=== PATIENT | male | born 1995 | race Caucasian/White ===

== ENCOUNTER 2024-06-25 03:02 | Inpatient (IN) | payer OTHER ==
--- NOTE | 2024-06-25 03:29 | ED ---
Arrhythmia/Palpitations HPI - General Chief Complaint: Arrhythmia/Palpitations Stated Complaint: Chest Pain Time Seen by Provider: 06/25/24 03:12 Source: patient, EMS Mode of arrival: EMS - History of Present Illness Initial Comments: Patient is a 29-year-old male with no significant past medical history presenting today for palpitations. Patient states he has had chest pain across his chest for a week. He has been taking Tylenol for the pain. Tonight he got updated water and started feeling palpitations. He collapsed and is unsure if he lost consciousness however he remembers his girlfriend calling 911. On EMS arrival patient appeared to be in SVT and so was cardioverted. On arrival to the emergency department patient states he is asymptomatic. He denies any shor tness of breath or chest pain currently. Denies nausea, vomiting, recent fevers chills or cough. Denies does endorse sore throat. States that on Friday he called in sick to work due to congestion and sore throat. He also was with his mother this last weekend who was recently admitted to the hospital for double pneumonia. No family history sudden cardiac . - Related Data Home Medications Medication Instructions Recorded Confirmed No Known Home Medications 06/25/24 06/25/24 Allergies Allergy/AdvReac Type Severity Reaction Status Date / Time No Known Allergies Allergy Verified 06/25/24 07:45 Review of Systems ROS Statement: Those systems with pertinent positive or pertinent negative responses have been documented in the HPI. Constitutional: Denies: fever, chills ENT: Reports: throat pain, congestion Respiratory: Denies: cough, dyspnea, hemoptysis Cardiovascular: Reports: palpitations. Denies: chest pain, edema Gastrointestinal: Denies: abdominal pain, nausea, vomiting, diarrhea Neurological: Denies: weakness, numbness Past Medical History History of Any Multi-Drug Resistant Organisms: None Reported Past Psychological History: ADD/ADHD, Anxiety Smoking Status: Vaper Past Alcohol Use History: None Reported Past Drug Use History: Marijuana General Exam - General Exam Comments Initial Comments: PE: CONSTITUTIONAL: No apparent distress, ill appearing, nontoxic SKIN: Cool, dry, pale, no jaundice, hives or petechiae EYES: Pupils are equally round, extraocular movements intact without nystagmus, clear conjunctiva, non-icteric sclera HENT: Normocephalic, atraumatic, moist mucus membranes, oropharynx clear without exudates NECK: , Full range of motion, normal appearance PULMONARY: Clear to auscultation without wheezes, rhonchi, or rales, normal excursion, no accessory muscle use and no stridor CARDIOVASCULAR: Tachycardia, regular rhythm, normal S1 and S2. No appreciated murmurs, rubs or gallops. Strong radial pulses with intact distal perfusion. 1+ RLE edema GASTROINTESTINAL: Soft, active bowel sounds throughout, non-tender, non- distended, no palpable masses, no rebound or guarding. No hepatosplenomegaly MUSCULOSKELETAL: Extremities have no gross deformity, redness, or swelling. NEUROLOGIC:_a/o x 3, GCS 15, normal mentation and speech. Moves all extremities x 4 without motor or sensory deficit PSYCHIATRIC:_normal mood and affect, thought process is clear and linear Course Vital Signs 06/25/24 06/25/24 06/25/24 03:04 04:05 05:06 Temperature Pulse Rate 101 H 112 H 103 H Respiratory 16 20 18 Rate Blood Pressure 114/84 119/82 110/88 O2 Sat by Pulse 96 95 95 Oximetry 06/25/24 06/25/24 06/25/24 06:45 07:40 07:42 Temperature 98.1 F Pulse Rate 110 H 102 H Respiratory 22 19 Rate Blood Pressure 117/98 120/74 O2 Sat by Pulse 95 95 Oximetry EKG Findings - EKG Comments: EKG Findings:: EKG #1, performed 3:08 AM. Rate 110 bpm DC interval 187 ms, QRS duration 106 ms, QT/QTc 348/413 ms, left axis deviation, T wave inversion leads, mild ST depression V4, 5, 6, no ST elevations, PVCs present. 2, performed at 4:22 AM. Sinus tachycardia, rate 105 bpm, DC interval 197 ms, QRS duration 99 ms, QT/QTc 363/424 ms, borderline left axis deviation, no new ST elevations or depressions, stable from earlier PVCs noted Medical Decision Making - Medical Decision Making Was pt. sent in by a medical professional or institution (, PA, PATTERN HAND, urgent care, hospital, or shelter...) When possible be specific @ -No Did you speak to anyone other than the patient for history (EMS, parent, family, police, friend...)? What history was obtained from this source @ -EMS report provided report to RN who provided report to myself Did you review nursing and triage notes (agree or disagree)? Why? @ -I reviewed and agree with nursing and triage notes-with exception of st atement that patient is in A-fib with RVR, patient appears to be in sinus tachycardia on arrival Were old charts reviewed (outside hosp., previous admission, EMS record, old EKG, old radiological studies, urgent care reports/EKG's, shelter records)? Report findings @ -No old charts were reviewed no prior charts available for review Differential Diagnosis (chest pain, altered mental status, abdominal pain women, abdominal pain men, vaginal bleeding, weakness, fever, dyspnea, syncope, headac he, dizziness, GI bleed, back pain, seizure, CVA, palpatations, mental health, musculoskeletal)? @ -Differential diagnose runs broad however top considerations include ACS, arrhythmia, pericarditis, myocarditis, PE is not all-inclusive list EKG interpreted by me (3pts min.). @ -As above X-rays interpreted by me (1pt min.). @Cardiomegaly, small bilateral pleural effusions, pulmonary edema CT interpreted by me (1pt min.). @ -Cardiomegaly, no PE or dissection U/S interpreted by me (1pt. min.). @ -None done What testing was considered but not performed or refused? (CT, X-rays, U/S, labs)? Why? @ -None What meds were considered but not given or refused? Why? @ -None Did you discuss the management of the patient with other professionals (professionals i.e. , PA, PATTERN HAND, lab, RT, psych nurse, sexual assault social worker, chauffeur motorbus, teacher, chief creative officer, wrapper caser)? Give summary @ -No Was smoking cessation discussed for >3mins.? @ -No Was critical care preformed (if so, how long)? @ -Yes, 45 minutes Were there social determinants of health that impacted care today? How? (Homelessness, low income, unemployed, alcoholism, drug addiction, transportation, low edu. Level, literacy, decrease access to med. care, retirement, rehab)? @ -No Was there de-escalation of care discussed even if they declined (Discuss DNR or withdrawal of care, Hospice)? @ -No What co-morbidities impacted this encounter? (DM, HTN, Smoking, COPD, CAD, Cancer, CVA, ARF, Chemo, Hep., AIDS, mental health diagnosis, sleep apnea, morbid obesity)? @ -None Was patient admitted / discharged? Hospital course, mention meds given and route, prescriptions, significant lab abnormalities, going to OR and other pertinent info. @ -Hospital course admitted Seen and assessed on arrival, he is a pleasant 29-year-old gentleman with no significant past medical history presenting today status post SVT, status post cardioversion. Now in sinus tachycardia. On assessment patient is pale and ill-appearing but nontoxic in no acute distress. He is awake alert and pleasant. Cardiac exam shows normal S1-S2, tachycardia, 2+ DP pulses bilaterally, lungs clear to auscultation bilaterally, 1+ lower extremity pitting edema. Patient is currently chest pain-free. Denies shortness of breath. Bedside ultrasound appears to show enlarged cardiac silhouette but no pericardial effusion. Plan for CT PE study, troponin, BNP, ASA administration,, CMP, CBC, CRP, 500 cc IV fluids, pt/ptt, DC mobile. Patient agreeable plan. Troponin significant 0.334, patient is not actively endorsing chest pain however given significant troponin elevation, chest pain for the last week heparin was initiated, reviewed CT scan right ventricle and right atrium appear enlarged unclear if there is PE present, currently pending radiologist read, requested CT be forwarded to stat read for expedited review. Updated patient to findings thus far and pending CT PE study. Repeat EKG was obtained and showed no new ST elevations or depressions, no changes from original. Updated him plan for heparin administration. Patient denies further needs at this time, agreeable th plan. Labs otherwise significant for creatinine 1.35, GFR 69, CRP 1.3, CBC white blood cell count 17.3, K 3.4, ordered replacement K; viral testing negative. Chest CT significant for no large or central PE, no aortic aneurysm or dissection, interlobular septal thickening and groundglass opacities concerning for fluid overload and pulmonary edema, fluid overload and pulmonary edema bronchial pavon secondary to fluid overload bronchitis not excluded, moderate right and left pleural effusions nonspecific prominent mediastinal and hilar lymph nodes shotty left axillary lymph nodes with nonspecific specific fat stranding. On my reassessment there was some lymphadenopathy in right axilla h owever no tenderness palpation or fluctuance. Updated patient to findings. Discussed with him plan for admission. Patient is agreeable with plan. Will initiate abx given lymphadenopathy and leukocytosis noted on labs, ordered blood culture (only 1 due to shortage of blood cultures). Discussed case with Dr. Humphrey, [facility], [place] [facility], kindly except for admission. Patient admitted in stable but guarded condition. Of note, after admission, patient remained in ED until bed placement. I was aler jocelyn by RN that patient was diaphoretic and having chest pain. On my assessment patient pale and diaphoretic. Repeat EKG obtained, remained stable from prior EKGs performed. Ordered morphine, SL nitroglycerin, paged cardiology. Discussed with Dr. Pacheco, who kindly will send cardiology to evaluate patient. Repeat troponin currently pending. On reassessment, patient's pain improving with sublingual nitroglycerin. Repeat troponin .992. I did request that RN contact admitting team regarding this. Cardiology, Dr. Winter at bedside to evaluate patient. Undiagnosed new problem with uncertain prognosis? @ Yes Drug Therapy requiring intensive monitoring for toxicity (Heparin, Nitro, Insulin, Cardizem)? @ Heparin Were any procedures done? @ -No Diagnosis/symptom? @ -NSTEMI, pleural effusions, concern for myocarditis Acute, or Chronic, or Acute on Chronic? @ -Acute Uncomplicated (without systemic symptoms) or Complicated (systemic symptoms)? @ Complicated Side effects of treatment? @ -No Exacerbation, Progression, or Severe Exacerbation? @ -No Poses a threat to life or bodily function? How? (Chest pain, [place], [place], pneumonia, PE, COPD, DKA, ARF, appy, cholecystitis, CVA, Diverticulitis, Homicidal, Suicidal, threat to staff... and all critical care pts) @ Yes - Lab Data Result diagrams: 06/25/24 03:15 06/25/24 03:15 Lab Results 06/25/24 06/25/24 06/25/24 Range/Units 03:15 03:15 03:15 WBC 17.3 H (3.8-10.6) k/uL RBC 4.48 (4.30-5.90) m/uL Hgb 14.0 (13.0-17.5) gm/dL Hct 43.2 (39.0-53.0) % MCV 96.4 (80.0-100.0) fL MCH 31.2 (25.0-35.0) pg MCHC 32.4 (31.0-37.0) g/dL RDW 13.1 (11.5-15.5) % Plt Count 228 (150-450) k/uL MPV 9.6 Neutrophils % 92 % Lymphocytes % 5 % Monocytes % 3 % Eosinophils % 0 % Basophils % 0 % Neutrophils # 16.0 H (1.3-7.7) k/uL Lymphocytes # 0.8 L (1.0-4.8) k/uL Monocytes # 0.5 (0-1.0) k/uL Eosinophils # 0.0 (0-0.7) k/uL Basophils # 0.0 (0-0.2) k/uL PT 13.0 H (10.0-12.5) sec INR 1.2 H (<1.2) APTT 22.1 (22.0-30.0) sec Sodium 138 (137-145) mmol/L Potassium 3.4 L (3.5-5.1) mmol/L Chloride 112 H (98-107) mmol/L Carbon Dioxide 19 L (22-30) mmol/L Anion Gap 7 mmol/L BUN 16 (9-20) mg/dL Creatinine 1.35 H (0.66-1.25) mg/dL Est GFR (CKD-EPI)AfAm 80 (>60 ml/min/1.73 sqM) Est GFR (CKD-EPI)NonAf 69 (>60 ml/min/1.73 sqM) Glucose 118 H (74-99) mg/dL Calcium 8.9 (8.4-10.2) mg/dL Magnesium 1.9 (1.6-2.3) mg/dL Total Bilirubin 1.9 H (0.2-1.3) mg/dL AST 62 H (17-59) U/L ALT 33 (4-49) U/L Alkaline Phosphatase 67 (38-126) U/L Troponin I (0.000-0.034) ng/mL C-Reactive Protein 1.3 H (<1.0) mg/dL Total Protein 5.8 L (6.3-8.2) g/dL Albumin 3.5 (3.5-5.0) g/dL Urine Opiates Screen (NotDetected) Ur Oxycodone Screen (NotDetected) Urine Methadone Screen (NotDetected) Ur Barbiturates Screen (NotDetected) U Tricyclic Antidepress (NotDetected) Ur Phencyclidine Scrn (NotDetected) Ur Amphetamines Screen (NotDetected) U Methamphetamines Scrn (NotDetected) U Benzodiazepines Scrn (NotDetected) Urine Cocaine Screen (NotDetected) U Marijuana (THC) Screen (NotDetected) Influenza Type A (PCR) (Not Detectd) Influenza Type B (PCR) (Not Detectd) RSV (PCR) (Not Detectd) SARS-CoV-2 (PCR) (Not Detectd) 06/25/24 06/25/24 06/25/24 Range/Units 03:15 03:40 04:25 WBC (3.8-10.6) k/uL RBC (4.30-5.90) m/uL Hgb (13.0-17.5) gm/dL Hct (39.0-53.0) % MCV (80.0-100.0) fL MCH (25.0-35.0) pg MCHC (31.0-37.0) g/dL RDW (11.5-15.5) % Plt Count (150-450) k/uL MPV Neutrophils % % Lymphocytes % % Monocytes % % Eosinophils % % Basophils % % Neutrophils # (1.3-7.7) k/uL Lymphocytes # (1.0-4.8) k/uL Monocytes # (0-1.0) k/uL Eosinophils # (0-0.7) k/uL Basophils # (0-0.2) k/uL PT (10.0-12.5) sec INR (<1.2) APTT (22.0-30.0) sec Sodium (137-145) mmol/L Potassium (3.5-5.1) mmol/L Chloride (98-107) mmol/L Carbon Dioxide (22-30) mmol/L Anion Gap mmol/L BUN (9-20) mg/dL Creatinine (0.66-1.25) mg/dL Est GFR (CKD-EPI)AfAm (>60 ml/min/1.73 sqM) Est GFR (CKD-EPI)NonAf (>60 ml/min/1.73 sqM) Glucose (74-99) mg/dL Calcium (8.4-10.2) mg/dL Magnesium (1.6-2.3) mg/dL Total Bilirubin (0.2-1.3) mg/dL AST (17-59) U/L ALT (4-49) U/L Alkaline Phosphatase (38-126) U/L Troponin I 0.182 H* (0.000-0.034) ng/mL C-Reactive Protein (<1.0) mg/dL Total Protein (6.3-8.2) g/dL Albumin (3.5-5.0) g/dL Urine Opiates Screen Not Detected (NotDetected) Ur Oxycodone Screen Not Detected (NotDetected) Urine Methadone Screen Not Detected (NotDetected) Ur Barbiturates Screen Not Detected (NotDetected) U Tricyclic Antidepress Not Detected (NotDetected) Ur Phencyclidine Scrn Not Detected (NotDetected) Ur Amphetamines Screen Not Detected (NotDetected) U Methamphetamines Scrn Not Detected (NotDetected) U Benzodiazepines Scrn Not Detected (NotDetected) Urine Cocaine Screen Not Detected (NotDetected) U Marijuana (THC) Screen Detected H (NotDetected) Influenza Type A (PCR) Not Detected (Not Detectd) Influenza Type B (PCR) Not Detected (Not Detectd) RSV (PCR) Not Detected (Not Detectd) SARS-CoV-2 (PCR) Not Detected (Not Detectd) Disposition Clinical Impression: Tachycardia, Pleural effusion, Cardiomegaly, NSTEMI (non-ST elevated myocardial infarction) Disposition: ADMITTED IP TO THIS HOSP Condition: Stable
[2024-06-25] MEDS: ASPIRIN 81 MG PO STA (03:36)
[2024-06-25] MEDS: SODIUM CHLORIDE 0.9% 500 ML 500 ML IV STA (03:37)
[2024-06-25 03:49] LABS: ALT 33 U/L (4-49); AST 62 U/L (17-59); African American GFR (CKD) 80 (>60 ml/min/1.73 sqM); Albumin 3.5 g/dL (3.5-5.0); Alkaline Phosphatase 67 U/L (38-126); Anion Gap 7 mmol/L; Blood Urea Nitrogen 16 mg/dL (9-20); C Reactive Protein 1.3 mg/dL (<1.0); Calcium 8.9 mg/dL (8.4-10.2); Carbon Dioxide 19 mmol/L (22-30); Chloride 112 mmol/L (98-107); Glucose 118 mg/dL (74-99); INR 1.2 (<1.2); Magnesium 1.9 mg/dL (1.6-2.3); Non-African American GFR(CKD) 69 (>60 ml/min/1.73 sqM); Partial Thromboplastin Time 22.1 sec (22.0-30.0); Potassium 3.4 mmol/L (3.5-5.1); Sodium 138 mmol/L (137-145); Total Bilirubin 1.9 mg/dL (0.2-1.3); Total Protein 5.8 g/dL (6.3-8.2)
[2024-06-25 04:22] LABS: Basophils % (A) 0 %; Eosinophils % (A) 0 %; HCT 43.2 % (39.0-53.0); Lymphocytes # (A) 0.8 k/uL (1.0-4.8); Lymphocytes % (A) 5 %; MCH 31.2 pg (25.0-35.0); MCHC 32.4 g/dL (31.0-37.0); MCV 96.4 fL (80.0-100.0); Mean Platelet Volume 9.6; Monocytes # (A) 0.5 k/uL (0-1.0); Monocytes % (A) 3 %; Neutrophils % (A) 92 %; Platelet Count 228 k/uL (150-450); RBC 4.48 m/uL (4.30-5.90); RDW 13.1 % (11.5-15.5); WBC 17.3 k/uL (3.8-10.6)
[2024-06-25] MEDS ORDERED: HEPARIN SODIUM 1,000 UN/ML (10ML VL) IV PRN ×2 (04:47→15:15)
[2024-06-25] MEDS: HEPARIN SOD,PORK IN 0.45% NACL 25,000 UNIT in 0.45% NACL 1 250ML.BAG IV SCH ×4 (04:55→15:36)
[2024-06-25] MEDS: HEPARIN SODIUM 1,000 UN/ML (10ML VL) IVP STA (04:56)
[2024-06-25] MEDS: HEPARIN SODIUM 1,000 UN/ML (10ML VL) IV ONE ×2 (04:59→16:32)
--- NOTE | 2024-06-25 05:17 | CT ---
EXAM: CT Angiography Chest Without and With Intravenous Contrast CLINICAL HISTORY: ITS.REASON CT Reason: tachycardia, CP for a week TECHNIQUE: Axial computed tomographic angiography images of the chest without and with intravenous contrast. CTDI is 152.9 mGy and DLP is 1583.2 mGy-cm. This CT exam was performed using one or more of the following dose reduction techniques: automated exposure control, adjustment of the mA and/or kV according to patient size, and/or use of iterative reconstruction technique. MIP reconstructed images were created and reviewed. COMPARISON: None FINDINGS: Pulmonary arteries: No central or large pulmonary embolus identified. Evaluation of the pulmonary arterial branches is limited by suboptimal contrast bolus timing. Aorta: No acute findings. No aortic aneurysm or dissection. Lungs: Interlobular septal thickening and groundglass opacities, concerning for fluid overload and pulmonary edema. Prominence of the bronchial pavon is probably secondary to fluid overload. Bronchitis is not excluded. Dependent atelectasis bilaterally. Pleural space: Moderate right and small left pleural effusions. No pneumothorax. Heart: Mild cardiomegaly. No significant pericardial effusion. No evidence of RV dysfunction. Mediastinum: Nonspecific prominent mediastinal and hilar lymph nodes. Shotty left axillary lymph nodes are nonspecific fat stranding. Bones/joints: No acute fracture. No dislocation. Soft tissues: Unremarkable. Lymph nodes: See above. IMPRESSION: 1. No central or large pulmonary embolus identified. Evaluation of the pulmonary arterial branches is limited by suboptimal contrast bolus timing. 2. No aortic aneurysm or dissection. 3. Interlobular septal thickening and groundglass opacities, concerning for fluid overload and pulmonary edema. 4. Prominence of the bronchial pavon is probably secondary to fluid overload. Bronchitis is not excluded. 5. Moderate right and small left pleural effusions. 6. Nonspecific prominent mediastinal and hilar lymph nodes. Shotty left axillary lymph nodes are nonspecific fat stranding.
--- NOTE | 2024-06-25 05:18 | XR ---
EXAM: XR Chest, 2 Views CLINICAL HISTORY: ITS.REASON XR Reason: dysrhythmia TECHNIQUE: Frontal and lateral views of the chest. COMPARISON: Same day CT chest FINDINGS: Hardware: None. Lungs/pleura: Prominent lung markings and hazy opacities. Small pleural effusions. Heart/mediastinum: Enlargement of the cardiac silhouette. Soft tissues: Unremarkable. Bones: No acute fracture. Upper abdomen: Normal. IMPRESSION: Prominent lung markings and hazy opacities, suggesting pulmonary vasculature congestion and edema. Small pleural effusions.
[2024-06-25 05:19] LABS: Amphetamine Screen,Urine Not Detected (NotDetected); Barbiturate Screen,Urine Not Detected (NotDetected); Benzodiazepines Screen,Urine Not Detected (NotDetected); Cocaine Screen,Urine Not Detected (NotDetected); Methadone Screen, Urine Not Detected (NotDetected); Opiate Screen,Urine Not Detected (NotDetected); Oxycodone Screen, Urine Not Detected (NotDetected); Phencyclidine Screen,Urine Not Detected (NotDetected); Tricyclic Antidepressant,Urine Not Detected (NotDetected); Urn Cannabinoid Scrn Detected (NotDetected)
[2024-06-25] MEDS ORDERED: NALOXONE 0.4 MG/ML 1 ML VIAL IV PRN (05:32)
[2024-06-25] MEDS ORDERED: traMADol 50 MG TAB PO PRN (05:32)
[2024-06-25] MEDS ORDERED: CALCIUM CARBONATE 500 MG CHEWABLE PO PRN (05:32)
[2024-06-25] MEDS ORDERED: ONDANSETRON 4 MG/2 ML VIAL IVP PRN (05:32)
[2024-06-25] MEDS ORDERED: MAG HYDROX/AL HYDROX/SIMETH 30 ML CUP PO PRN (05:32)
[2024-06-25] MEDS ORDERED: ACETAMINOPHEN TAB 325 MG TAB PO PRN (05:32)
[2024-06-25] MEDS: SODIUM CHLORIDE 0.9% 1,000 ML IV SCH ×4 (05:56→16:24)
[2024-06-25] MEDS: cefTRIAXone IN SWFI 1,000 MG/10 ML SYRINGE IVP STA (05:57)
[2024-06-25] MEDS: AZITHROMYCIN 500 MG in SODIUM CHLORIDE 0.9% 250 ML IVPB STA (05:57)
[2024-06-25] MEDS: POTASSIUM BICARBONATE/CIT AC 20 MEQ TABLET.EFF PO SCH (06:07)
[2024-06-25] MEDS: NITROGLYCERIN SL TABS 0.4 MG TAB SUBLINGUAL PRN (07:02)
[2024-06-25] MEDS: MORPHINE SULFATE 4 MG/ML SYRINGE IV PRN (07:03)
[2024-06-25] MEDS: NITROGLYCERIN SL TABS 0.4 MG TAB SUBLINGUAL STA (08:06)
[2024-06-25] MEDS ORDERED: ALPRAZolam 0.5 MG TAB PO PRN (08:32)
[2024-06-25] MEDS ORDERED: ALPRAZolam 0.25 MG TAB PO PRN (08:32)
[2024-06-25] MEDS ORDERED: NITROGLYCERIN SL TABS 0.4 MG TAB SUBLINGUAL PRN (08:32)
[2024-06-25] MEDS: FAMOTIDINE 20 MG TAB PO SCH (08:44)
[2024-06-25] MEDS: ASPIRIN 325 MG TAB PO STA (08:44)
[2024-06-25] MEDS: METOPROLOL TARTRATE 25 MG TAB PO SCH (08:45)
[2024-06-25] MEDS: ATORVASTATIN 80 MG TAB PO STA (08:51)
[2024-06-25] MEDS ORDERED: ASPIRIN 81 MG PO SCH (09:00)
[2024-06-25] MEDS: SODIUM CHLORIDE 0.9% 1,000 ML in EMPTY BAG 1 BAG IV SCH (09:10)
--- NOTE | 2024-06-25 09:33 | P.CRDCN ---
History of Present Illness History of present illness: HISTORY OF PRESENT ILLNESS: This is a 29-year-old male with a past medical history significant for ADD, anxiety, nicotine dependence, and occasional marijuana use. Patient does not follow with a retail product demo specialist. We have been asked to see the patient in consultation for SVT, cardiomegaly. Patient examined at the bedside in the emergency room. Patient states that he has had an upper respiratory infection/cold all week. He states that his mom was in town visiting and she was also sick at that time. His mom eventually went to the hospital and was diagnosed with pneumonia. He states that he woke up from sleep with a feeling of his heart racing. He also reports having some pressure on his chest. According to ER documentation the patient was found to be in SVT and was apparently cardioverted by EMS. There is no documentation that patient was given adenosine. There are no telemetry tracings of SVT available from EMS at the time of examination. The patient states about 30 minutes prior to our evaluation he had another episode of chest pain where he felt pain in the middle of his chest along with feeling diaphoretic and feverish. He states that he got to nitro which did help his chest pain but it is still not completely gone. DIAGNOSTICS: - EKG reveals sinus mechanism with T wave inversions in lead I, V4V6 along with mild ST depression - Chest xray prominent lung markings and hazy opacities, suggesting pulmonary vascular congestion and edema. Small pleural effusions. -Chest CTA: No central or large pulmonary embolism identified. No aortic aneurysm or dissection. Interlobular septal thickening and groundglass opacities, concerning for fluid overload and pulmonary edema. Prominence of the bronchial pavon is probably secondary to fluid overload. Bronchitis is not excluded. Moderate right and small left pleural effusion. Nonspecific prominent mediastinal and hilar lymph nodes. Shotty left axillary lymph nodes are nonspecific fat stranding - Laboratory data: - Current home cardiac medications include none REVIEW OF SYSTEMS: At the time of my exam: CONSTITUTIONAL: Denies fever or chills. HEENT: Denies blurred vision, vision changes, or eye pain. Denies hemoptysis CARDIOVASCULAR: Reports chest pain. Denies orthopnea. Denies PND. Denies palpita tions RESPIRATORY: Denies shortness of breath. GASTROINTESTINAL: Denies abdominal pain. Denies nausea or vomiting. HEMATOLOGIC: Denies bleeding disorders. GENITOURINARY: Denies any blood in urine. SKIN: Denies pruitis. Denies rash. PHYSICAL EXAM: VITAL SIGNS: Reviewed. GENERAL: Well-developed in no acute distress. HEENT: Head is normocephalic. Pupils are equal, round. Sclerae anicteric. Mucous membranes of the mouth are moist. Neck supple. No JVD or thyromegaly LUNGS: Respirations even and unlabored. Lungs essentially clear to auscultation bilaterally. HEART: Regular rate and rhythm. S1 and S2 heard. ABDOMEN: Soft. Nondistended. Nontender. EXTREMITIES: Normal range of motion. No clubbing or cyanosis. Peripheral pulses intact. No lower extremity edema NEUROLOGIC: Awake and alert. Oriented x 3. ASSESSMENT: Recent upper respiratory infection Elevated troponins, Non-STEMI likely myocarditis, however cannot rule out underlying CAD or coronary dissection Reported SVT requiring cardioversion, no telemetry tracings from EMS available Acute kidney injury Leukocytosis Bilateral pleural effusions, per CTA History of ADD History of anxiety Nicotine dependence Occasional marijuana use Morbid obesity: BMI 40.0 PLAN: Obtain 2D echo to assess cardiac structure and function Continue IV heparin Add aspirin, atorvastatin, and metoprolol Continue telemetry monitoring Patient to undergo cardiac catheterization today with Dr. Caputo Smoking cessation recommended. Patient to be referred to [place] quit line upon discharge Abstinence from marijuana encouraged Further recommendations pending patient course Nurse practitioner note has been reviewed by physician. Signing provider agrees with the documented findings, assessment, and plan of care documented by ICE HOUSE SUPERVISOR as a scribe. Past Medical History History of Any Multi-Drug Resistant Organisms: None Reported Past Psychological History: ADD/ADHD, Anxiety Smoking Status: Vaper Past Alcohol Use History: None Reported Past Drug Use History: Marijuana Medications and Allergies Home Medications Medication Instructions Recorded Confirmed Type No Known Home Medications 06/25/24 06/25/24 History Allergies Allergy/AdvReac Type Severity Reaction Status Date / Time No Known Allergies Allergy Verified 06/25/24 07:45 Physical Exam Vitals: Vital Signs Pulse Resp BP Pulse Ox 06/25/24 05:06 103 H 18 110/88 95 06/25/24 04:05 112 H 20 119/82 95 06/25/24 03:04 101 H 16 114/84 96 Intake and Output 06/24/24 06/24/24 06/25/24 14:59 22:59 06:59 Other: Weight 145.15 kg Results 06/25/24 03:15 06/25/24 03:15 Cardiac Enzymes 06/25/24 06/25/24 Range/Units 03:15 03:15 AST 62 H (17-59) U/L Troponin I 0.182 H* (0.000-0.034) ng/mL Coagulation 06/25/24 Range/Units 03:15 PT 13.0 H (10.0-12.5) sec APTT 22.1 (22.0-30.0) sec CBC 06/25/24 Range/Units 03:15 WBC 17.3 H (3.8-10.6) k/uL RBC 4.48 (4.30-5.90) m/uL Hgb 14.0 (13.0-17.5) gm/dL Hct 43.2 (39.0-53.0) % Plt Count 228 (150-450) k/uL Comprehensive Metabolic Panel 06/25/24 Range/Units 03:15 Sodium 138 (137-145) mmol/L Potassium 3.4 L (3.5-5.1) mmol/L Chloride 112 H (98-107) mmol/L Carbon Dioxide 19 L (22-30) mmol/L BUN 16 (9-20) mg/dL Creatinine 1.35 H (0.66-1.25) mg/dL Glucose 118 H (74-99) mg/dL Calcium 8.9 (8.4-10.2) mg/dL AST 62 H (17-59) U/L ALT 33 (4-49) U/L Alkaline Phosphatase 67 (38-126) U/L Total Protein 5.8 L (6.3-8.2) g/dL Albumin 3.5 (3.5-5.0) g/dL Current Medications Generic Name Dose Route Start Last Admin Trade Name Freq PRN Reason Stop Dose Admin Acetaminophen 650 mg 06/25/24 05:32 Acetaminophen Tab 325 Mg Tab PO Q6HR PRN Mild Pain or Fever > 100.5 Al Hydroxide/Mg Hydroxide 15 ml 06/25/24 05:32 Mag Hydrox/Al Hydrox/Simeth 30 Ml Cup PO Q6HR PRN Indigestion Calcium Carbonate/Glycine 1,000 mg 06/25/24 05:32 Calcium Carbonate 500 Mg Chewable PO Q4HR PRN Dyspepsia Famotidine 20 mg 10/04/24 09:00 Famotidine 20 Mg Tab PO BID TRU Heparin Sodium (Porcine) 0 unit 06/25/24 04:47 Heparin Sodium 1,000 Un/Ml (10ml Vl) IV PER PROTOCOL PRN Low PTT Protocol Heparin Sodium/Sodium Chloride 250 mls @ 10 mls/hr 06/25/24 04:45 06/25/24 05:01 25,000 unit/ Sodium Chloride IV 6.8894 units/kg/hr .Q24H TRU 10 mls/hr Administration Protocol 6.8894 UNITS/KG/HR Heparin Sodium/Sodium Chloride 250 mls @ 10 mls/hr 06/25/24 05:00 06/25/24 05:03 25,000 unit/ Sodium Chloride IV Not Given .Q24H TRU Protocol 6.8894 UNITS/KG/HR Azithromycin 500 mg/ Sodium 250 mls @ 250 mls/hr 06/25/24 05:30 06/25/24 05:57 Chloride IVPB 06/25/24 06:29 250 mls/hr ONCE STA Administration Protocol Sodium Chloride 1,000 mls @ 75 mls/hr 06/25/24 05:45 06/25/24 05:56 Saline 0.9% IV 75 mls/hr .[id number] TRU Administration Morphine Sulfate 4 mg 06/25/24 05:32 Morphine Sulfate 4 Mg/Ml Syringe IV Q4HR PRN Severe Pain (Scale 7 to 10) Naloxone HCl 0.2 mg 06/25/24 05:32 Naloxone 0.4 Mg/Ml 1 Ml Vial IV Q2M PRN Opioid Reversal Ondansetron HCl 4 mg 06/25/24 05:32 Ondansetron 4 Mg/2 Ml Vial IVP Q8HR PRN Nausea And Vomiting Potassium Bicarbonate 20 meq 06/25/24 09:00 06/25/24 06:07 Potassium Bicarbonate/Cit Ac 20 Meq Tablet.Eff PO 20 meq DAILY TRU Administration Tramadol HCl 50 mg 06/25/24 05:32 Tramadol 50 Mg Tab PO Q6H PRN Moderate Pain (Scale 4 to 6) Intake and Output 06/24/24 06/24/24 06/25/24 14:59 22:59 06:59 Other: Weight 145.15 kg Patient Weight 06/25/24 06:59 Weight 145.15 kg 06/25/24 03:15 06/25/24 03:15
[2024-06-25] MEDS: MIDAZOLAM 2 MG/2 ML VIAL IVP ONE (10:32)
[2024-06-25] MEDS: fentaNYL (PF) 50 MCG/ML 2 ML AMP IVP ONE (10:32)
[2024-06-25] MEDS: LIDOCAINE 1% INJ 10MG/ML (20 ML MDV) SQ ONE (10:36)
[2024-06-25] MEDS: IV FLUID CONTINUATION 1,000 ML IV ONE (10:41)
[2024-06-25] MEDS: IOPAMIDOL-370 100ML BTL INJ ONE ×2 (11:10)
[2024-06-25] MEDS: HEPARIN SODIUM,PORCINE (1 ML) 2,500 UNIT in SODIUM CHLORIDE 0.9% 250 ML IRRIGATION PRN (11:11)
[2024-06-25] MEDS: HEPARIN SODIUM,PORCINE 10,000 UNIT in SODIUM CHLORIDE 0.9% 1,000 ML IRRIGATION PRN (11:11)
[2024-06-25] MEDS ORDERED: RX INFO: IV CONTRAST WAS GIVEN 1 EACH MISC MISCELLANE PRN (12:18)
[2024-06-25] MEDS ORDERED: ALBUTEROL NEBULIZED (CONC) 20 MG, SODIUM CHLORIDE 0.9% NEBULIZ 3 ML INHALATION PRN (12:19)
[2024-06-25] MEDS: FUROSEMIDE 10 MG/ML 4 ML VIAL IV STA (12:26)
[2024-06-25] MEDS: ALBUTEROL NEBULIZED 2.5 MG/3 ML INHALATION PRN (12:32)
[2024-06-25 13:10] LABS: Glucose,Whole Blood 128 mg/dL (70-110)
[2024-06-25] MEDS: LOSARTAN 25 MG TAB PO SCH (13:30)
[2024-06-25 13:31] LABS: Glucose,Whole Blood 132 mg/dL (70-110)
[2024-06-25 14:30] LABS: Basophils % (A) 0 %; Eosinophils % (A) 0 %; HCT 46.8 % (39.0-53.0); HGB 14.8 gm/dL (13.0-17.5); Lymphocytes # (A) 0.7 k/uL (1.0-4.8); Lymphocytes % (A) 6 %; MCH 30.7 pg (25.0-35.0); MCHC 31.6 g/dL (31.0-37.0); MCV 97.4 fL (80.0-100.0); Mean Platelet Volume 9.2; Monocytes # (A) 0.4 k/uL (0-1.0); Monocytes % (A) 4 %; Neutrophils # (A) 10.8 k/uL (1.3-7.7); Neutrophils % (A) 89 %; Platelet Count 270 k/uL (150-450); RDW 13.3 % (11.5-15.5); WBC 12.1 k/uL (3.8-10.6)
--- NOTE | 2024-06-25 14:50 | US ---
EXAMINATION TYPE: US venous doppler duplex LE RT DATE OF EXAM: 06/25/2024 2:41 PM COMPARISON: NONE CLINICAL INDICATION: Male, 29 years old with history of RLE swelling; RLE swelling. No hx of DVT, not on blood thinners. SIDE PERFORMED: Right TECHNIQUE: The lower extremity deep venous system is examined utilizing real time linear array sonog aj with graded compression, color doppler sonography, and spectral doppler. VESSELS IMAGED: Common Femoral Vein Deep Femoral Vein Greater Saphenous Vein * Femoral Vein Popliteal Vein Small Saphenous Vein * Proximal Calf Veins (* superficial vessels) Right Leg: Groin limited due to heart cath this morning and newton taped to right groin. Echoes seen in the mid popliteal vein with limited flow and limited compression IMPRESSION: Findings most consistent with nonocclusive deep venous thrombosis involving the mid righ t popliteal vein. A Red level critical message alert has been initiated for Frank Humphrey MD via the [employer] System on 06/25/2024 2:48 PM. This message alert has been sent to Frank Humphrey MD via t preferences provided by the clinician for the receipt of Radiology Critical Findings. Message ID [id number]. [facility], , 06/25/2024 2:48 PM
[2024-06-25 14:53] LABS: ALT 34 U/L (4-49); AST 43 U/L (17-59); African American GFR (CKD) >90 (>60 ml/min/1.73 sqM); Albumin 3.9 g/dL (3.5-5.0); Alkaline Phosphatase 63 U/L (38-126); Anion Gap 11 mmol/L; Blood Urea Nitrogen 15 mg/dL (9-20); Carbon Dioxide 21 mmol/L (22-30); Chloride 106 mmol/L (98-107); Creatine Kinase 142 U/L (55-170); Glucose 118 mg/dL (74-99); Magnesium 1.8 mg/dL (1.6-2.3); Non-African American GFR(CKD) 83 (>60 ml/min/1.73 sqM); Sodium 138 mmol/L (137-145); Total Bilirubin 1.6 mg/dL (0.2-1.3); Total Protein 6.4 g/dL (6.3-8.2)
[2024-06-25 15:03] LABS: Glucose,Whole Blood 132 mg/dL (70-110)
--- NOTE | 2024-06-25 16:11 | P.CNPUL ---
History of Present Illness Consult date: 06/25/24 Requesting physician: Frank Humphrey Reason for consult: dyspnea, hypoxemia, DVT, abnormal CXR/CT Chief complaint: Chest pain, heart racing, shortness of breath History of present illness: This is a 29-year-old male patient with a known history of ADHD, anxiety, vaping, marijuana use who moved here recently from [place] about 6 months ago. No current primary care provider. No home medications. He states he had been having some chest discomfort across his chest for about a week. He was using Tylenol for the pain. He woke up after midnight this morning with his heart racing and palpitations. He had gotten up to get a drink of water and collapsed. Unclear if he lost consciousness. His girlfriend called 911 and he was brought here by EMS. He was found to be in SVT and was cardioverted by tunnel worker. He was fairly asymptomatic when he arrived at the emergency room. He did state he had called in sick earlier this week due to sore throat cough and congestion. His mom had recently been admitted for bilateral pneumonia and she had developed a DVT. CT angiogram performed this morning ruled out central or large pulmonary embolus however suboptimal contrast bolus timing could not exclu de PE in the pulmonary arterial branches. No evidence of aortic aneurysm or dissection. There was interlobular septal thickening and groundglass opacities concerning for fluid overload and pulmonary edema. There is moderate right and small left pleural effusions. EKG revealed sinus tachycardia with some ST and T wave abnormalities laterally. The patient was taken to the cardiac lab and was found to have normal coronary arteries. Shortly after being admitted to the selective care unit the patient developed acute hypoxemia, diaphoresis tachycardia requiring BiPAP placement 12/5 and 100% FiO2. He was transferred to the intensive care unit for closer monitoring. He is seen there today in consultation. He is currently awake and alert. He remains on BiPAP. He denies any further chest discomfort. Dopplers of the lower extremity were positive for a DVT on the right and he was initiated back on a heparin drip. Echocardiogram is pending. Viral screen was negative. He received Lasix 40 mg IVP x 1 with 2 L of urine output. White count 12.1. Hemoglobin 14.8. Platelets 270. Sodium 138. Potassium 4.0. Bicarb 21. BUN 15. Creatinine 1.17. Troponin 0.182, 0.941. Urine drug screen positive for marijuana. Review of Systems REVIEW OF SYSTEMS: CONSTITUTIONAL: Denies any recent significant weight loss or weight gain. EYES: Denies change in vision. EARS, NOSE, MOUTH, THROAT: Denies headaches, denies sore throat. CARDIOVASCULAR: Positive for palpitations and chest pain, near syncopal episode. RESPIRATORY: Positive for shortness of breath, no cough, congestion or hemoptysis. GASTROINTESTINAL: Denies change in appetite, denies abdominal pain GENITOURINARY: Denies hematuria, denies infections. MUSKULOSKELETAL: Denies pain, denies swelling. INTEGUMENTARY: Denies rash, denies eczema. NEUROLOGICAL: Denies recent memory loss, no recent seizure activity. PSYCHIATRIC: Denies anxiety, denies depression. HEMATOLOGIC/LYMPHATIC: Denies anemia, denies enlarged lymph nodes. Past Medical History Additional Past Medical History / Comment(s): ADD, anxiety,htn, Goes though 1 vape every 2 weeks. Concussion x5 during high school football History of Any Multi-Drug Resistant Organisms: None Reported Past Surgical History: No Surgical Hx Reported Past Anesthesia/Blood Transfusion Reactions: No Reported Reaction Past Psychological History: ADD/ADHD, Anxiety Smoking Status: Vaper Past Alcohol Use History: Rare Past Drug Use History: Marijuana Additional Drug Use History / Comment(s): Currently daily vaper 10-15 puffs daily, uses 1 vape every two weeks. - Past Family History Mother Family Medical History: Congestive Heart Failure (CHF), COPD, Diabetes Mellitus, Deep Vein Thrombosis (DVT), Mitral Valve Prolapse (MVP), Pneumonia Additional Family Medical History / Comment(s): Recent penumonia with a gram - bacilli Father Additional Family Medical History / Comment(s): gout, elevated, psa smoker Medications and Allergies Home Medications Medication Instructions Recorded Confirmed Type No Known Home Medications 06/25/24 06/25/24 History Allergies Allergy/AdvReac Type Severity Reaction Status Date / Time No Known Allergies Allergy Verified 06/25/24 07:45 Physical Exam Vitals: Vital Signs Temp Pulse Pulse Resp BP BP Pulse Ox 06/25/24 15:20 06/25/24 14:15 93 16 109/83 100 06/25/24 14:00 94 16 120/84 100 06/25/24 13:45 97 16 113/97 100 06/25/24 13:29 98.2 F 103 H 19 98/64 100 06/25/24 13:09 96 23 113/79 95 06/25/24 12:58 117 H 21 124/74 78 L 06/25/24 12:42 110 H 06/25/24 12:37 95 06/25/24 12:33 107 H 106 H 20 136/79 93 L 06/25/24 12:17 106 H 20 126/58 93 L 06/25/24 12:00 104 H 20 124/83 96 06/25/24 11:47 100 20 144/81 95 06/25/24 11:32 100 20 109/75 93 L 06/25/24 10:44 06/25/24 10:43 06/25/24 10:02 98.1 F 106 H 22 118/95 95 06/25/24 09:03 106 H 22 131/97 95 06/25/24 08:46 102 H 16 123/82 96 06/25/24 07:42 102 H 19 120/74 95 06/25/24 07:40 98.1 F 06/25/24 06:45 110 H 22 117/98 95 06/25/24 05:06 103 H 18 110/88 95 06/25/24 04:05 112 H 20 119/82 95 06/25/24 03:04 101 H 16 114/84 96 FiO2 06/25/24 15:20 100 06/25/24 14:15 100 06/25/24 14:00 100 06/25/24 13:45 100 06/25/24 13:29 100 06/25/24 13:09 100 06/25/24 12:58 06/25/24 12:42 06/25/24 12:37 06/25/24 12:33 06/25/24 12:17 06/25/24 12:00 06/25/24 11:47 06/25/24 11:32 06/25/24 10:44 80 06/25/24 10:43 80 06/25/24 10:02 06/25/24 09:03 06/25/24 08:46 06/25/24 07:42 06/25/24 07:40 06/25/24 06:45 06/25/24 05:06 06/25/24 04:05 06/25/24 03:04 Intake and Output 06/25/24 06/25/24 06/25/24 06:59 14:59 22:59 Intake Total 250 Output Total 1625 Balance -1375 Intake: IV 250 Output: Urine 1625 Other: Weight 145.15 kg 144 kg GENERAL EXAM: Alert, obese, pleasant 29-year-old male, on BiPAP 12/5 and 60% FiO2, fairly comfortable in no apparent distress. HEAD: Normocephalic. EYES: Normal reaction of pupils, equal size. NOSE: Clear with pink turbinates. THROAT: No erythema or exudates. NECK: No masses, no JVD. CHEST: No chest wall deformity. LUNGS: Equal air entry with no crackles, wheeze, rhonchi or dullness. CVS: S1 and S2 normal with no audible murmur, regular rhythm. ABDOMEN: No hepatosplenomegaly, normal bowel sounds, no guarding or rigidity. SPINE: No scoliosis or deformity SKIN: No rashes CENTRAL NERVOUS SYSTEM: No focal deficits, tone is normal in all 4 extremities. EXTREMITIES: There is no peripheral edema. No clubbing, no cyanosis. Peripheral pulses are intact. Results - Laboratory Findings CBC and BMP: 06/25/24 14:10 06/25/24 14:10 PT/INR, D-dimer PT 13.0 sec (10.0-12.5) H 06/25/24 03:15 INR 1.2 (<1.2) H 06/25/24 03:15 Abnormal lab findings: Abnormal Labs 06/25/24 06/25/24 06/25/24 03:15 03:15 03:15 WBC 17.3 H Neutrophils # 16.0 H Lymphocytes # 0.8 L PT 13.0 H INR 1.2 H Potassium 3.4 L Chloride 112 H Carbon Dioxide 19 L Creatinine 1.35 H Glucose 118 H POC Glucose (mg/dL) Total Bilirubin 1.9 H AST 62 H Troponin I C-Reactive Protein 1.3 H Total Protein 5.8 L U Marijuana (THC) Screen 06/25/24 06/25/24 06/25/24 03:15 04:25 06:35 WBC Neutrophils # Lymphocytes # PT INR Potassium Chloride Carbon Dioxide Creatinine Glucose POC Glucose (mg/dL) Total Bilirubin AST Troponin I 0.182 H* 0.941 H* C-Reactive Protein Total Protein U Marijuana (THC) Screen Detected H 06/25/24 06/25/24 06/25/24 12:59 13:30 13:30 WBC Neutrophils # Lymphocytes # PT INR Potassium Chloride Carbon Dioxide Creatinine Glucose POC Glucose (mg/dL) 128 H 132 H 132 H Total Bilirubin AST Troponin I C-Reactive Protein Total Protein U Marijuana (THC) Screen 06/25/24 06/25/24 14:10 14:10 WBC 12.1 H Neutrophils # 10.8 H Lymphocytes # 0.7 L PT INR Potassium Chloride Carbon Dioxide 21 L Creatinine Glucose 118 H POC Glucose (mg/dL) Total Bilirubin 1.6 H AST Troponin I C-Reactive Protein Total Protein U Marijuana (THC) Screen - Diagnostic Findings Chest x-ray: image reviewed CT scan - chest: image reviewed U/S of Legs: image reviewed Assessment and Plan Assessment: Palpitations in a patient found to be in SVT requiring cardioversion prior to arrival to the emergency department Acute hypoxemic respiratory failure secondary to bilateral pleural effusions, suspected pulmonary emboli Acute right lower extremity DVT, initiated on a heparin drip Transient ST segment elevation, cardiac catheterization revealed normal coronary arteries History of vaping, marijuana use History of ADHD Family history of DVT in his mother History of anxiety Plan: The patient was seen and evaluated Imaging, labs and medications reviewed Received IV diuretics with good urine output Currently on BiPAP, transition to nasal cannula as tolerated Continue with a heparin drip Echocardiogram pending Would benefit from genetic testing for blood dyscrasias Continue to monitor closely here in the intensive care unit We will continue to follow and make further recommendations based on his clinical status I have personally seen and examined the patient, performed the documentation and the assessment and plan as written. Number of minutes spent on the visit: 20.
--- NOTE | 2024-06-25 16:31 | P.HPIM ---
History of Present Illness H&P Date: 06/25/24 Chief Complaint: Palpitations Patient is a 29-year-old male with a past medical history of marijuana use, vaping, hypertension, ADHD who is currently on no medication presents to the ED with complaints of palpitations. Patient did report that he was having chest pain across his chest for the past week. He was taking Tylenol for the pain. He states that last night he got up to get some water and started feeling palpitations and he then collapsed and is not sure if he lost consciousness. His fiance called 911. When EMS arrived patient was found to be in SVT. He wa s cardioverted. In the ED patient was found to have ST depressions in his lateral lead. His troponin increased from 0.182 to 0.941. Patient was emergently taken for heart catheterization. Heart cath at the time of this report is pending however I was told by ICU nurse that it was negative. During the heart catheterization patient became cyanotic and short of breath. Patient was given IV Lasix 40 mg. Once patient was stabilized he was transferred to [facility]. On 3S Patient became short of breath again. He was placed on BiPAP and transferred to the ICU. I saw patient in the ICU. Per ICU nurse patient has now put out over 2 L of urine. Patient is on BiPAP at 60%. He states that he is feeling much better. CTA was done that showed no large pulmonary embolus however there was interlobar septal thickening and groundglass opacities concerning for fluid overload and pulmonary edema. There is also moderate right and small left pleural effusions. Patient also had lower extremity Dopplers done that showed nonocclusive DVT involving the mid right popliteal vein. Patient was started on heparin drip. ROS: 10 ROS reviewed and are negative except as noted in HPI Physical exam General: [Alert and oriented, well nourished, no acute distress]. Eye: [PERRL, EOMI, normal conjunctiva]. HENT: [Normocephalic, clear tympanic membranes, normal hearing, moist oral mucosa, no scleral icterus, no sinus tenderness]. Neck: [Supple, non-tender, no carotid bruits, no JVD, no lymphadenopathy]. Lungs: [Crackles in bilateral lower lungs]. Heart: [Normal rate, regular rhythm, no murmur, gallop or edema]. Abdomen: [Soft, non-tender, non-distended, normal bowel sounds, no masses]. Musculoskeletal: [Normal range of motion and strength, no tenderness or swelling]. Skin: [Skin is warm, dry and pink, no rashes or lesions]. Neurologic: [Awake, alert, and oriented X3, CN II-XII intact]. Psychiatric: [Cooperative, appropriate mood and affect]. Assessment and plan Acute hypoxic respiratory failure Volume overload suspect due to heart failure Suspect acute heart failure due to SVT SVT suspect due to excessive caffeine intake Status post cardioversion by EMS for SVT Rule out myocarditis since patient had recent viral infection History of vaping Wean off BiPAP as tolerated DuoNeb as needed Patient was given one-time dose of IV Lasix 40 mg with significant urine output of over 2 L. Patient reporting that his shortness of breath is improving. Patient's procalcitonin 0.09 and patient is afebrile so we will hold off on antibiotics. I ordered TSH which was 1.960. Echocardiogram ordered and pending Patient reports that he drinks 1 L of Mountain Dew every single day. Patient was counseled on cutting back on his Mountain Dew Acute right lower extremity DVT Continue with heparin drip I discussed with pulmonology who suspects that patient may also have a small pulmonary embolism that was not seen on CTA scan because patient found to have acute DVT. Elevated troponin likely due to demand ischemia Questionable syncope Patient had an emergent left heart cath I was told by ICU nurse that he was negative for coronary disease obstruction. Will need to follow-up on final heart cath report. Cardiology started the patient on losartan 12.5 mg p.o. daily and metoprolol 25 mg p.o. twice daily and aspirin 81 mg p.o. daily and atorvastatin 20 mg p.o. at bedtime Acute kidney injury which I suspect is due to cardiorenal Initial creatinine was 1.35 Repeat creatinine was 1.17 after being given Lasix Mild leukocytosis Likely reactive Patient was given one-time dose of Rocephin and azithromycin in the ED WBC 17.3 and repeat WBC 12.1. Improving Check UA, check blood culture Hyperglycemia Likely reactive Check hemoglobin A1c ADHD Patient currently not on any medications Hypertension Patient was not taking any medications Patient started on the medications mentioned above DVT prophylaxis: Heparin drip Past Medical History Additional Past Medical History / Comment(s): ADD, anxiety,htn, Goes though 1 vape every 2 weeks. Concussion x5 during high school football History of Any Multi-Drug Resistant Organisms: None Reported Past Surgical History: No Surgical Hx Reported Past Anesthesia/Blood Transfusion Reactions: No Reported Reaction Past Psychological History: ADD/ADHD, Anxiety Smoking Status: Vaper Past Alcohol Use History: Rare Past Drug Use History: Marijuana Additional Drug Use History / Comment(s): Currently daily vaper 10-15 puffs daily, uses 1 vape every two weeks. - Past Family History Mother Family Medical History: Congestive Heart Failure (CHF), COPD, Diabetes Mellitus, Deep Vein Thrombosis (DVT), Mitral Valve Prolapse (MVP), Pneumonia Additional Family Medical History / Comment(s): Recent penumonia with a gram - bacilli Father Additional Family Medical History / Comment(s): gout, elevated, psa smoker Medications and Allergies Home Medications Medication Instructions Recorded Confirmed Type No Known Home Medications 06/25/24 06/25/24 History Allergies Allergy/AdvReac Type Severity Reaction Status Date / Time No Known Allergies Allergy Verified 06/25/24 07:45 Physical Exam Osteopathic Statement: *. No significant issues noted on an osteopathic structural exam other than those noted in the History and Physical/Consult. Vitals: Vital Signs Temp Pulse Pulse Resp BP BP Pulse Ox 06/25/24 15:20 06/25/24 14:15 93 16 109/83 100 06/25/24 14:00 94 16 120/84 100 06/25/24 13:45 97 16 113/97 100 06/25/24 13:29 98.2 F 103 H 19 98/64 100 06/25/24 13:09 96 23 113/79 95 06/25/24 12:58 117 H 21 124/74 78 L 06/25/24 12:42 110 H 06/25/24 12:37 95 06/25/24 12:33 107 H 106 H 20 136/79 93 L 06/25/24 12:17 106 H 20 126/58 93 L 06/25/24 12:00 104 H 20 124/83 96 06/25/24 11:47 100 20 144/81 95 06/25/24 11:32 100 20 109/75 93 L 06/25/24 10:44 06/25/24 10:43 06/25/24 10:02 98.1 F 106 H 22 118/95 95 06/25/24 09:03 106 H 22 131/97 95 06/25/24 08:46 102 H 16 123/82 96 06/25/24 07:42 102 H 19 120/74 95 06/25/24 07:40 98.1 F 06/25/24 06:45 110 H 22 117/98 95 06/25/24 05:06 103 H 18 110/88 95 06/25/24 04:05 112 H 20 119/82 95 06/25/24 03:04 101 H 16 114/84 96 FiO2 06/25/24 15:20 100 06/25/24 14:15 100 06/25/24 14:00 100 06/25/24 13:45 100 06/25/24 13:29 100 06/25/24 13:09 100 06/25/24 12:58 06/25/24 12:42 06/25/24 12:37 06/25/24 12:33 06/25/24 12:17 06/25/24 12:00 06/25/24 11:47 06/25/24 11:32 06/25/24 10:44 80 06/25/24 10:43 80 06/25/24 10:02 06/25/24 09:03 06/25/24 08:46 06/25/24 07:42 06/25/24 07:40 06/25/24 06:45 06/25/24 05:06 06/25/24 04:05 06/25/24 03:04 Intake and Output 06/25/24 06/25/24 06/25/24 06:59 14:59 22:59 Intake Total 250 Output Total 1999 275 Balance -1750 -275 Intake: IV 250 Output: Urine 1999 275 Other: Weight 145.15 kg 144 kg Results CBC & Chem 7: 06/25/24 14:10 06/25/24 14:10 Labs: Abnormal Lab Results - Last 24 Hours (Table) 06/25/24 06/25/24 06/25/24 Range/Units 03:15 03:15 03:15 WBC 17.3 H (3.8-10.6) k/uL Neutrophils # 16.0 H (1.3-7.7) k/uL Lymphocytes # 0.8 L (1.0-4.8) k/uL PT 13.0 H (10.0-12.5) sec INR 1.2 H (<1.2) Potassium 3.4 L (3.5-5.1) mmol/L Chloride 112 H (98-107) mmol/L Carbon Dioxide 19 L (22-30) mmol/L Creatinine 1.35 H (0.66-1.25) mg/dL Glucose 118 H (74-99) mg/dL POC Glucose (mg/dL) (70-110) mg/dL Total Bilirubin 1.9 H (0.2-1.3) mg/dL AST 62 H (17-59) U/L Troponin I (0.000-0.034) ng/mL C-Reactive Protein 1.3 H (<1.0) mg/dL Total Protein 5.8 L (6.3-8.2) g/dL U Marijuana (THC) Screen (NotDetected) 06/25/24 06/25/24 06/25/24 Range/Units 03:15 04:25 06:35 WBC (3.8-10.6) k/uL Neutrophils # (1.3-7.7) k/uL Lymphocytes # (1.0-4.8) k/uL PT (10.0-12.5) sec INR (<1.2) Potassium (3.5-5.1) mmol/L Chloride (98-107) mmol/L Carbon Dioxide (22-30) mmol/L Creatinine (0.66-1.25) mg/dL Glucose (74-99) mg/dL POC Glucose (mg/dL) (70-110) mg/dL Total Bilirubin (0.2-1.3) mg/dL AST (17-59) U/L Troponin I 0.182 H* 0.941 H* (0.000-0.034) ng/mL C-Reactive Protein (<1.0) mg/dL Total Protein (6.3-8.2) g/dL U Marijuana (THC) Screen Detected H (NotDetected) 06/25/24 06/25/24 06/25/24 Range/Units 12:59 13:30 13:30 WBC (3.8-10.6) k/uL Neutrophils # (1.3-7.7) k/uL Lymphocytes # (1.0-4.8) k/uL PT (10.0-12.5) sec INR (<1.2) Potassium (3.5-5.1) mmol/L Chloride (98-107) mmol/L Carbon Dioxide (22-30) mmol/L Creatinine (0.66-1.25) mg/dL Glucose (74-99) mg/dL POC Glucose (mg/dL) 128 H 132 H 132 H (70-110) mg/dL Total Bilirubin (0.2-1.3) mg/dL AST (17-59) U/L Troponin I (0.000-0.034) ng/mL C-Reactive Protein (<1.0) mg/dL Total Protein (6.3-8.2) g/dL U Marijuana (THC) Screen (NotDetected) 06/25/24 06/25/24 Range/Units 14:10 14:10 WBC 12.1 H (3.8-10.6) k/uL Neutrophils # 10.8 H (1.3-7.7) k/uL Lymphocytes # 0.7 L (1.0-4.8) k/uL PT (10.0-12.5) sec INR (<1.2) Potassium (3.5-5.1) mmol/L Chloride (98-107) mmol/L Carbon Dioxide 21 L (22-30) mmol/L Creatinine (0.66-1.25) mg/dL Glucose 118 H (74-99) mg/dL POC Glucose (mg/dL) (70-110) mg/dL Total Bilirubin 1.6 H (0.2-1.3) mg/dL AST (17-59) U/L Troponin I (0.000-0.034) ng/mL C-Reactive Protein (<1.0) mg/dL Total Protein (6.3-8.2) g/dL U Marijuana (THC) Screen (NotDetected) Thrombosis Risk Factor Assmnt - Choose All That Apply Any of the Below Risk Factors Present?: Yes Each Factor Represents 1 point: Acute AK, Obesity (BMI >25), Swollen legs (current) Other Risk Factors: Yes Each Risk Factor Represents 2 Points: Patient confined to bed Each Risk Factor Represents 3 Points: Family history of DVT/PE Other congenital or acquired thrombophilia - If yes, enter type in comment: No Thrombosis Risk Factor Assessment Total Risk Factor Score: 8 Thrombosis Risk Factor Assessment Level: High Risk
[2024-06-25] MEDS: NITROGLYCERIN-D5W PMX 50 MG in DEXTROSE/WATER 1 250ML.BAG IV SCH ×2 (17:30)
[2024-06-25 17:39] LABS: Glucose,Whole Blood 92 mg/dL (70-110)
--- NOTE | 2024-06-25 18:04 | CA ---
Transthoracic Echo Report Name: Ky Wells Age: 29 Gender: M : 1995 Exam Date: 06/25/2024 15:47 Exam Location: [facility] Ht (in): 75 Wt (lb): 320 Ordering Physician: Carmen Almonte MD Attending/Referring Phys: Gallery Director Yina Clemente RDCS Procedure CPT: Indications: SVT, elevated troponin, volume overload Cardiac Hx: Technical Quality: Technically difficult study Contrast 1: Definity Total Dose (mL): 2 Contrast 2: Total Dose (mL): MEASUREMENTS (Male / Female) Normal Values 2D ECHO LV Diastolic Diameter PLAX 7.6 cm 4.2 - 5.9 / 3.9 - 5.3 cm LV Systolic Diameter PLAX 7.0 cm IVS Diastolic Thickness 0.9 cm 0.6 - 1.0 / 0.6 - 0.9 cm LVPW Diastolic Thickness 1.0 cm 0.6 - 1.0 / 0.6 - 0.9 cm LV Relative Wall Thickness 0.3 LVOT Diameter 2.3 cm LV Diastolic Volume MOD BP 429.5 cm??? 67 - 155 / 56 - 104 cm??? LV Systolic Volume MOD BP 373.5 cm??? 22 - 58 / 19 - 49 cm??? LV Ejection Fraction MOD BP 13.0 % >= 55 % LV Cardiac Index MOD BP 1843.1 cm???/min???m??? LV Diastolic Volume MOD 4C 417.6 cm??? LV Systolic Volume MOD 4C 340.0 cm??? LV Ejection Fraction MOD 4C 18.6 % LV Cardiac Index MOD 4C 2552.6 cm???/min???m??? LV Diastolic Length 4C 11.6 cm LV Systolic Length 4C 10.6 cm LV Diastolic Volume MOD 2C 434.6 cm??? LV Systolic Volume MOD 2C 398.2 cm??? LV Ejection Fraction MOD 2C 8.4 % LV Cardiac Index MOD 2C 1198.5 cm???/min???m??? LV Diastolic Length 2C 11.4 cm LV Systolic Length 2C 10.9 cm LA Volume 327.7 cm??? 18 - 58 / 22 - 52 cm??? LA Volume Index 115.9 cm???/m??? 16 - 28 cm???/m??? Ascending Aorta Diameter 3.6 cm DOPPLER AV Peak Velocity 107.7 cm/s AV Peak Gradient 4.6 mmHg AV Mean Velocity 82.7 cm/s AV Mean Gradient 2.9 mmHg AV Velocity Time Integral 18.5 cm LVOT Peak Velocity 101.8 cm/s LVOT Peak Gradient 4.1 mmHg LVOT Velocity Time Integral 17.6 cm LVOT Stroke Volume 72.7 cm??? LVOT Stroke Volume Index 27.1 ml/m??? LVOT Cardiac Index 2392.9 cm???/min???m??? AV Area Cont Eq vti 3.9 cm??? AV Area Cont Eq pk 3.9 cm??? MR Peak Velocity 445.8 cm/s MR Peak Gradient 79.5 mmHg MR Flow Rate PISA 49.8 cm???/s MR ERO PISA 0.1 cm??? MR Regurgitant Volume PISA 15.1 cm??? PV Peak Velocity 59.8 cm/s PV Peak Gradient 1.4 mmHg FINDINGS Left Ventricle Left ventricular ejection fraction is estimated at 15-20 %. Severely increased left ventricular diastolic diameter. Severely increased left ventricular diastolic volume. Severely increased left ventricular systolic volume. Severely decreased left ventricular ejection fraction. Right Ventricle Mild right ventricular dilatation with mildly reduced function. Unable to estimate the right ventricular systolic pressure. Right Atrium Normal right atrial size. Left Atrium Severely increased left atrial volume. Severely increased left atrial area. Mitral Valve Structurally normal mitral valve. No evidence for mitral valve prolapse. No mitral stenosis. Moderate mitral regurgitation. Aortic Valve Trileaflet aortic valve. No aortic valve stenosis or regurgitation. Tricuspid Valve Structurally normal tricuspid valve. No tricuspid stenosis. No tricuspid regurgitation. Pulmonic Valve Pulmonic valve not well visualized. No pulmonic stenosis. No pulmonic regurgitation. Pericardium No pericardial effusion. Left pleural effusion. Aorta Normal size aortic root and proximal ascending aorta. CONCLUSIONS Severely dilated LV cavity. Severely reduced LV systolic function LVEF 15 to 20% RV dilatation with reduced systolic function Severe LA dilatation Moderate MR, likely functional No pericardial effusion Previewed by: Dr Waldo Caputo (Electronically Signed) Final Date: 25 June 2024 18:03
--- NOTE | 2024-06-25 18:25 | P.CARDCATH ---
Date of Procedure: 06/25/24 Description of Procedure: DIAGNOSTIC CORONARY ANGIOGRAPHY and LEFT HEART CATH REPORT PROCEDURES PERFORMED: Left heart catheterization Selective coronary angiography Moderate conscious sedation 39 mins [Ultrasound assisted] Right radial access Ultrasound assisted right femoral access Right common femoral angiogram 6 [place] VIP Angio-Seal closure INDICATION: Elevated troponins, substernal chest pressure, abnormal ECG CONSENT: I have explained the procedural steps of above-mentioned procedures in layman's terms to the patient. I discussed the risks (including but not limited to stroke, emergent vascular or cardiac surgery or ), benefits and alternative therapies for the above-mentioned procedure. I discussed the risks of sedation/analgesia and blood product administration (if indicated). The patient has indicated understanding and acceptance of these risks. Conscious Sedation: Patient's ECG, heart rate, blood pressure, pulse oximetry were monitored throughout the duration of procedure under my direct supervision. [2] mg Versed and [50] mcg Fentanyl were used for induction of moderate conscious sedation. Total duration of moderate concious sedation [25] minutes. PROCEDURE: At the beginning of the procedure, patient was agitated and was tachypneic. He appeared to be significantly diaphoretic. We gave him sedation in a slow progressive fashion by giving 1 mg Versed and 25 mcg fentanyl then following up with another set of similar doses. We placed the patient nonrebreather and eventually on BiPAP to support patient's bleeding. Once patient was hemodynamically stabilized, we proceeded with cath catheterization. After explaining the risks, benefits and alternatives of the above mentioned procedures in detail to the patient, informed consent was obtained. Patient was taken to the catheterization lab, prepped and draped in usual sterile fashion using universal precuations. Ultrasound was used to identify the radial artery. 1% lidocaine was infiltrated over the right radial artery. I attempted to obtain the right radial artery access but the artery was spasming therefore I could not advance the wire. At this time I decided to abort the right radial approach and proceed with the right femoral approach. With an ultrasound guidance identified the right femo ral artery and the bifurcation. Under ultrasound guidance using a micropuncture needle and modified cynical technique, I obtained the right common femoral access. I exchanged the micropuncture needle for the micro sheath. This was exchanged for a 6 [place] sheath. The sheath was secured and flushed. Right common femoral angiogram was performed to confirm the access site which was appropriate. J tipped wire was advanced under fluoroscopic guidance. Over the wire JR4 diagnostic catheter was advanced. The wire in place the catheter was manipulated to cross the aortic valve and entered into LV under fluoroscopy guidance. The wire was removed and the catheter was flushed. LV pressures were obtained and pullback was performed under fluoroscopy. Catheter was manipulated to selectively engage the right coronary ostium. Right coronary angiography was performed in different angiographic projections. The JR4 diagnostic catheter was exchanged for a JL 4 diagnostic catheter over the J-wire. The wire was removed, catheter was flushed and manipulated under fluoroscopy to selectively engaged the left coronary ostium. Left coronary angioplasty was performed in different angiographic projections. This was exchanged for a 6 [place] pigtail catheter. The pigtail catheter was prolapsed across aortic valve and was flushed. Left ventriculogram was performed. Pullback was performed across aortic valve. The pigtail catheter was removed over the wire. The femoral sheath was placed. A 6 [place] Angio-Seal closure device was utilized to obtain the patent hemostasis at the right femoral arteriotomy site. Angiographic images were reviewed in detail. HEMODYNAMICS: Aortic Pressure: 105/60 mmHg. LV pressure: 110/10 mmHg. LVEDP 40 mmHg. There was no significant gradient across the aortic valve. SELECTIVE CORONARY ARTERIOGRAPHY: LEFT MAIN: The left main is short and large caliber vessel. It bifurcates into the LAD and circumflex. Left main appears angiographically normal. LEFT ANTERIOR DESCENDING CORONARY ARTERY: LAD is a large caliber vessel which wraps around to the apex. Proximal LAD appears angiographically normal. Mid LAD appears angiographically normal. Distal LAD appears angiographically normal. LEFT CIRCUMFLEX CORONARY ARTERY: It is nondominant vessel. Left circumflex is a moderate caliber vessel. It appears angiographically normal. RIGHT CORONARY ARTERY: Dominant vessel. The right coronary artery is a large caliber vessel which gives PDA and PLV branch. It appears angiographically normal. Left ventriculography: Severely dilated LV cavity with severely reduced LVEF. Global hypokinesia. LVEF estimated at 15 to 20% IMPRESSION: Angiographically normal coronary arteries as described above. Severe LV dysfunction Nonischemic cardiomyopathy Severely elevated LVEDP PLAN: 75 cc/h of normal saline for 5 hours Further recommendations to follow Performing Physician Waldo Caputo MD, FACC, RPVI Thank you for allowing [facility] to participate in this patient's care. Feel free to reach out in case of any followup questions.
[2024-06-25] MEDS ORDERED: ATORVASTATIN 40 MG TAB PO SCH (21:00)
[2024-06-25] MEDS: ATORVASTATIN 20 MG TAB PO SCH (21:32)
[2024-06-25 23:27] LABS: Appearance,Urine Clear (Clear); Bilirubin,Urine Negative (Negative); Blood,Urine Negative (Negative); Color,Urine Yellow; Glucose,Urine (UA) Negative (Negative); Ketones,Urine 1+ (Negative); Leukocyte Esterase,Urine Small (Negative); Mucus,Urine Rare /hpf; Nitrite,Urine Negative (Negative); Protein,Urine Negative (Negative); RBC,Urine 4 /hpf (0-5); WBC,Urine 21 /hpf (0-5)
[2024-06-26 06:10] LABS: Basophils % (A) 0 %; Eosinophils % (A) 1 %; HCT 38.5 % (39.0-53.0); HGB 13.1 gm/dL (13.0-17.5); Lymphocytes % (A) 11 %; MCH 32.4 pg (25.0-35.0); MCHC 34.1 g/dL (31.0-37.0); MCV 95.1 fL (80.0-100.0); Mean Platelet Volume 9.4; Monocytes # (A) 0.4 k/uL (0-1.0); Monocytes % (A) 5 %; Neutrophils # (A) 7.1 k/uL (1.3-7.7); Neutrophils % (A) 82 %; Platelet Count 189 k/uL (150-450); RBC 4.05 m/uL (4.30-5.90); RDW 13.6 % (11.5-15.5); WBC 8.7 k/uL (3.8-10.6)
[2024-06-26 06:25] LABS: Glucose,Whole Blood 94 mg/dL (70-110)
[2024-06-26 06:25] LABS: African American GFR (CKD) >90 (>60 ml/min/1.73 sqM); Anion Gap 5 mmol/L; Blood Urea Nitrogen 14 mg/dL (9-20); Calcium 8.8 mg/dL (8.4-10.2); Carbon Dioxide 24 mmol/L (22-30); Chloride 108 mmol/L (98-107); Glucose 96 mg/dL (74-99); Non-African American GFR(CKD) >90 (>60 ml/min/1.73 sqM); Potassium 3.2 mmol/L (3.5-5.1); Sodium 137 mmol/L (137-145)
[2024-06-26] MEDS ORDERED: Potassium Replacement Protocol 1 EACH MISC MISCELLANE PRN (07:05)
[2024-06-26] MEDS ORDERED: ASPIRIN 81 MG PO SCH (09:00)
[2024-06-26] MEDS: DAPAGLIFLOZIN PROPANEDIOL 10 MG TABLET PO SCH (09:43)
[2024-06-26] MEDS: LOSARTAN 25 MG TAB PO SCH (09:43)
[2024-06-26] MEDS: POTASSIUM CHLORIDE ER 20 MEQ TAB.ER PO SCH (09:43)
[2024-06-26] MEDS: ASPIRIN 81 MG PO SCH (09:43)
[2024-06-26] MEDS: Apixaban Initiation Dose--VTE 5 MG TAB PO SCH (09:44)
--- NOTE | 2024-06-26 10:09 | P.PN ---
Subjective Progress Note Date: 06/26/24 HISTORY OF PRESENT ILLNESS: This is a 29-year-old male with a past medical history significant for ADD, anxiety, nicotine dependence, and occasional marijuana use. 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 We have been asked to see the patient in consultation for SVT, cardiomegaly. Patient examined at the bedside in the emergency room. Patient states that he has had an upper respiratory infection /cold all week. He states that his mom was in town visiting and she was also sick at that time. His mom eventually went to the hospital and was diagnosed with pneumonia. He states that he woke up from sleep with a feeling of his heart racing. He also reports having some pressure on his chest. According to ER documentation the patient was found to be in SVT and was apparently cardioverted by EMS. There is no documentation that patient was given adenosine. There are no telemetry tracings of SVT available from EMS at the time of examination. The patient states about 30 minutes prior to our evaluation he had another episode of chest pain where he felt pain in the middle of his chest along with feeling diaphoretic and feverish. He states that he got to nitro which did help his chest pain but it is still not completely gone. DIAGNOSTICS: - EKG reveals sinus mechanism with T wave inversions in lead I, V4V6 along with mild ST depression - Chest xray prominent lung markings and hazy opacities, suggesting pulmonary vascular congestion and edema. Small pleural effusions. -Chest CTA: No central or large pulmonary embolism identified. No aortic aneurysm or dissection. Interlobular septal thickening and groundglass opacities, concerning for fluid overload and pulmonary edema. Prominence of the bronchial pavon is probably secondary to fluid overload. Bronchitis is not excluded. Moderate right and small left pleural effusion. Nonspecific prominent mediastinal and hilar lymph nodes. Shotty left axillary lymph nodes are nonspecific fat stranding - Laboratory data: - Current home cardiac medications include none 06/26 Yesterday, patient underwent cardiac catheterization which revealed normal coronary arteries, severe LV dysfunction, nonischemic cardiomyopathy, severely elevated LVEDP. Echocardiogram reveals EF 15 to 20%, RV dilatation with reduced systolic function, severe LA dilatation, moderate MR likely functional, no pericardial effusion. Patient is seen today in the intensive care unit. He has been transitioned off of IV heparin and started on Eliquis for PE per pulmonary. Patient is also on IV Lasix 40 mg every 8 hours. Patient states that he has had difficulty breathing for a week or so. No fever or chills. He denies having any chest pain and no chest pressure and no lower extremity edema. He states he is feeling better from yesterday. Gustafson catheter in place with output approximately 3800 and weight is documented is down 10 kg. Discussed results of the cardiac catheterization and echocardiogram with possible diagnosis of myocarditis, Takotsubo but most likely some other underlying etiology for cardiomyopathy due to the RV dilatation. Patient is currently on nitroglycerin drip. Patient drinks alcohol only occasionally. PHYSICAL EXAM: VITAL SIGNS: Reviewed. GENERAL: Well-developed in no acute distress. HEENT: Head is normocephalic. Pupils are equal, round. Sclerae anicteric. Mucous membranes of the mouth are moist. Neck supple. No JVD or thyromegaly LUNGS: Respirations even and unlabored. Lungs essentially clear to auscultation bilaterally. HEART: Regular rate and rhythm. S1 and S2 heard. ABDOMEN: Soft. Nondistended. Nontender. EXTREMITIES: Normal range of motion. No clubbing or cyanosis. Peripheral pulses intact. No lower extremity edema NEUROLOGIC: Awake and alert. Oriented x 3. ASSESSMENT: Recent upper respiratory infection Elevated troponins, Non-STEMI likely myocarditis, Takotsubo, other cause, however ruled out underlying CAD Reported SVT requiring cardioversion, no telemetry tracings from EMS available Acute kidney injury Pulmonary embolism Nonischemic cardiomyopathy Leukocytosis Bilateral pleural effusions, per CTA History of ADD History of anxiety Nicotine dependence Occasional marijuana use Morbid obesity: BMI 40.0 PLAN: Continue patient on the following cardiac medications: Aspirin, atorvastatin, and metoprolol Discontinue nitroglycerin drip Continue IV Lasix 40 mg every 8 hours Increase losartan 25 mg daily and add Farxiga 10 mg daily Monitor BIJAN, daily weights, electrolytes and renal function Obtain sed rate Smoking cessation recommended. Patient to be referred to [place] quit line upon discharge Abstinence from marijuana encouraged Further recommendations pending patient course Nurse practitioner note has been reviewed by physician. Signing provider agrees with the documented findings, assessment, and plan of care documented by [employer] DEVELOPER as a scribe. Objective - Vital Signs Vital signs: Vital Signs Temp 98.1 F 06/26/24 04:00 Pulse 92 06/26/24 08:16 Resp 19 10/05/24 07:00 BP 103/55 06/26/24 07:00 Pulse Ox 96 06/26/24 07:00 FiO2 60 06/26/24 05:00 Intake & Output 06/25/24 06/26/24 06/26/24 18:59 06:59 18:59 Intake Total 310 961.117 20 Output Total 3840 1295 40 Balance -3530 -333.883 -20 Weight 144 kg 135.3 kg Intake: IV 310 240 20 Sodium Chloride 0.9% 1, 60 240 20 000 ml @ 20 mls/hr IV . Q24H TRU Rx#:[id number] Intake, IV Titration 241.117 Amount Heparin Sod,Pork in 0.45% 241.117 NaCl 25,000 unit In 0.45 % NaCl 1 250ml.bag @ 15. 972 UNITS/KG/HR 23 mls/hr IV .[id number] TRU Rx#: [id number] Oral 480 Output: Urine 3840 1295 40 Other: Voiding Method Indwelling Catheter Indwelling Catheter - Labs CBC & Chem 7: 06/26/24 05:27 06/26/24 05:27 Labs: Abnormal Lab Results - Last 24 Hours (Table) 06/25/24 06/25/24 06/25/24 Range/Units 12:59 13:30 13:30 WBC (3.8-10.6) k/uL RBC (4.30-5.90) m/uL Hct (39.0-53.0) % Neutrophils # (1.3-7.7) k/uL Lymphocytes # (1.0-4.8) k/uL APTT (22.0-30.0) sec Potassium (3.5-5.1) mmol/L Chloride (98-107) mmol/L Carbon Dioxide (22-30) mmol/L Glucose (74-99) mg/dL POC Glucose (mg/dL) 128 H 132 H 132 H (70-110) mg/dL Total Bilirubin (0.2-1.3) mg/dL Ur Specific [place] (1.001-1.035) Urine Ketones (Negative) Ur Leukocyte Esterase (Negative) Urine WBC (0-5) /hpf Urine WBC Clumps (None) /hpf Urine Mucus (None) /hpf 06/25/24 06/25/24 06/25/24 Range/Units 14:10 14:10 22:45 WBC 12.1 H (3.8-10.6) k/uL RBC (4.30-5.90) m/uL Hct (39.0-53.0) % Neutrophils # 10.8 H (1.3-7.7) k/uL Lymphocytes # 0.7 L (1.0-4.8) k/uL APTT (22.0-30.0) sec Potassium (3.5-5.1) mmol/L Chloride (98-107) mmol/L Carbon Dioxide 21 L (22-30) mmol/L Glucose 118 H (74-99) mg/dL POC Glucose (mg/dL) (70-110) mg/dL Total Bilirubin 1.6 H (0.2-1.3) mg/dL Ur Specific [place] 1.040 H (1.001-1.035) Urine Ketones 1+ H (Negative) Ur Leukocyte Esterase Small H (Negative) Urine WBC 21 H (0-5) /hpf Urine WBC Clumps Rare H (None) /hpf Urine Mucus Rare H (None) /hpf 06/25/24 06/26/24 06/26/24 Range/Units 23:06 05:27 05:27 WBC (3.8-10.6) k/uL RBC 4.05 L (4.30-5.90) m/uL Hct 38.5 L (39.0-53.0) % Neutrophils # (1.3-7.7) k/uL Lymphocytes # (1.0-4.8) k/uL APTT 76.9 H (22.0-30.0) sec Potassium 3.2 L (3.5-5.1) mmol/L Chloride 108 H (98-107) mmol/L Carbon Dioxide (22-30) mmol/L Glucose (74-99) mg/dL POC Glucose (mg/dL) (70-110) mg/dL Total Bilirubin (0.2-1.3) mg/dL Ur Specific [place] (1.001-1.035) Urine Ketones (Negative) Ur Leukocyte Esterase (Negative) Urine WBC (0-5) /hpf Urine WBC Clumps (None) /hpf Urine Mucus (None) /hpf 06/26/24 Range/Units 05:27 WBC (3.8-10.6) k/uL RBC (4.30-5.90) m/uL Hct (39.0-53.0) % Neutrophils # (1.3-7.7) k/uL Lymphocytes # (1.0-4.8) k/uL APTT 62.6 H (22.0-30.0) sec Potassium (3.5-5.1) mmol/L Chloride (98-107) mmol/L Carbon Dioxide (22-30) mmol/L Glucose (74-99) mg/dL POC Glucose (mg/dL) (70-110) mg/dL Total Bilirubin (0.2-1.3) mg/dL Ur Specific [place] (1.001-1.035) Urine Ketones (Negative) Ur Leukocyte Esterase (Negative) Urine WBC (0-5) /hpf Urine WBC Clumps (None) /hpf Urine Mucus (None) /hpf
--- NOTE | 2024-06-26 10:59 | XR ---
EXAMINATION TYPE: XR chest 1V portable DATE OF EXAM: 06/26/2024 COMPARISON: 06/25/2024 INDICATION: CHF, pneumonia TECHNIQUE: Single frontal view of the chest is obtained. FINDINGS: The heart size is enlarged. The pulmonary vasculature is normal. Bibasilar infiltrates are developing greater on the left. IMPRESSION: 1. Cardiomegaly. 2. Increasing bibasilar traits more so on the left. Correlate for atelectasis or pneumonia. [facility], Workstation: [facility], 06/26/2024 10:57 AM
[2024-06-26 11:36] LABS: Glucose,Whole Blood 162 mg/dL (70-110)
--- NOTE | 2024-06-26 12:14 | P.PN ---
Subjective Progress Note Date: 06/26/24 Principal diagnosis: Severe nonischemic cardiomyopathy, possible supraventricular tachycardia requiring cardioversion and acute systolic congestive heart failure This is a 29-year-old male patient with a known history of ADHD, anxiety, vaping, marijuana use who moved here recently from [place] about 6 months ago. No current primary care provider. No home medications. He states he had been having some chest discomfort across his chest for about a week. He was using Tylenol for the pain. He woke up after midnight this morning with his heart racing and palpitations. He had gotten up to get a drink of water and collapsed. Unclear if he lost consciousness. His girlfriend called 911 and he was brought here by EMS. He was found to be in SVT and was cardioverted by E MTs. He was fairly asymptomatic when he arrived at the emergency room. He did state he had called in sick earlier this week due to sore throat cough and congestion. His mom had recently been admitted for bilateral pneumonia and she had developed a DVT. CT angiogram performed this morning ruled out central or large pulmonary embolus however suboptimal contrast bolus timing could not exclude PE in the pulmonary arterial branches. No evidence of aortic aneurysm or dissection. There was interlobular septal thickening and groundglass opacities concerning for fluid overload and pulmonary edema. There is moderate right and small left pleural effusions. EKG revealed sinus tachycardia with so me ST and T wave abnormalities laterally. The patient was taken to the cardiac lab and was found to have normal coronary arteries. Shortly after being admitted to the selective care unit the patient developed acute hypoxemia, diaphoresis tachycardia requiring BiPAP placement 12/5 and 100% FiO2. He was transferred to the intensive care unit for closer monitoring. He is seen there today in consultation. He is currently awake and alert. He remains on BiPAP. He denies any further chest discomfort. Dopplers of the lower extremity were positive for a DVT on the right and he was initiated back on a heparin drip. Echocardiogram is pending. Viral screen was negative. He received Lasix 40 mg IVP x 1 with 2 L of urine output. White count 12.1. Hemoglobin 14.8. Platelets 270. Sodium 138. Potassium 4.0. Bicarb 21. BUN 15. Creatinine 1.17. Troponin 0.182, 0.941. Urine drug screen positive for marijuana. Seen today on 06/26/2024, patient remains in the ICU, on 6 L nasal cannula with O2 saturation of 100%. Chest x-ray showing improvement in his pulmonary edema remains on Lasix at 40 mg IV push every 8 hours. Patient is on heparin, nitroglycerin drip, and his echocardiogram showed significant severe cardiomyopathy with LV dysfunction ejection fraction of 15% patient also has moderate mitral regurgitation. Considering the overall picture, I believe the patient clearly has severe nonischemic cardiomyopathy since his cardiac catheterization did not show any evidence of any coronary artery disease, and his cardiomyopathy issues are now being addressed by cardiology on the case. Patient was placed on Eliquis 2 discontinue heparin since he had DVT in the lower extremities, CT angiogram failed to show any significant pulmonary embolism however the patient will need to be treated with anticoagulation therapy either way. Patient was also placed on fark [employer], and he feels better today compared to how he felt yesterday. WBC count is 8.7 hemoglobin 13.1 PTT is 62.6 basic metabolic profile is normal except for low potassium being addressed as per protocol chest x-ray continues to show cardiomegaly and mild interstitial edema improved compared to the admission x-ray yesterday Objective - Vital Signs Vital signs: Vital Signs Temp 97.9 F 06/26/24 08:00 Pulse 98 06/26/24 11:16 Resp 18 06/26/24 11:00 BP 112/69 06/26/24 11:00 Pulse Ox 98 06/26/24 11:00 FiO2 60 06/26/24 05:00 Intake & Output 06/25/24 06/26/24 06/26/24 18:59 06:59 18:59 Intake Total 310 961.117 464.417 Output Total 3840 1295 365 Balance -3530 -333.883 99.417 Weight 144 kg 135.3 kg Intake: IV 310 240 40 Sodium Chloride 0.9% 1, 60 240 40 000 ml @ 20 mls/hr IV . Q24H TRU Rx#:[id number] Intake, IV Titration 241.117 174.417 Amount Heparin Sod,Pork in 0.45% 241.117 174.417 NaCl 25,000 unit In 0.45 % NaCl 1 250ml.bag @ 15. 972 UNITS/KG/HR 23 mls/hr IV .[id number] TRU Rx#: [id number] Oral 480 250 Output: Urine 3840 1295 365 Other: Voiding Method Indwelling Catheter Indwelling Catheter Indwelling Catheter - Exam GENERAL EXAM: 29-year-old white male in no distress HEAD: Normocephalic. EYES: Normal reaction of pupils, equal size. NOSE: Clear with pink turbinates. THROAT: No erythema or exudates. NECK: No masses, no JVD. CHEST: No chest wall deformity. LUNGS: Minimal crackles at the bases no rhonchi no wheezes CVS: S1 and S2 normal with over 6 systolic murmur at the left lower sternal border ABDOMEN: No hepatosplenomegaly, normal bowel sounds, no guarding or rigidity. SKIN: No rashes CENTRAL NERVOUS SYSTEM: Alert and oriented x 3 no gross focal neurologic deficit. EXTREMITIES: No clubbing, no edema, no cyanosis. No tenderness in lower extremities noted - Labs CBC & Chem 7: 06/26/24 05:27 06/26/24 05:27 Labs: Abnormal Lab Results - Last 24 Hours (Table) 06/25/24 06/25/24 06/25/24 Range/Units 12:59 13:30 13:30 WBC (3.8-10.6) k/uL RBC (4.30-5.90) m/uL Hct (39.0-53.0) % Neutrophils # (1.3-7.7) k/uL Lymphocytes # (1.0-4.8) k/uL APTT (22.0-30.0) sec Potassium (3.5-5.1) mmol/L Chloride (98-107) mmol/L Carbon Dioxide (22-30) mmol/L Glucose (74-99) mg/dL POC Glucose (mg/dL) 128 H 132 H 132 H (70-110) mg/dL Total Bilirubin (0.2-1.3) mg/dL Ur Specific [place] (1.001-1.035) Urine Ketones (Negative) Ur Leukocyte Esterase (Negative) Urine WBC (0-5) /hpf Urine WBC Clumps (None) /hpf Urine Mucus (None) /hpf 06/25/24 06/25/24 06/25/24 Range/Units 14:10 14:10 22:45 WBC 12.1 H (3.8-10.6) k/uL RBC (4.30-5.90) m/uL Hct (39.0-53.0) % Neutrophils # 10.8 H (1.3-7.7) k/uL Lymphocytes # 0.7 L (1.0-4.8) k/uL APTT (22.0-30.0) sec Potassium (3.5-5.1) mmol/L Chloride (98-107) mmol/L Carbon Dioxide 21 L (22-30) mmol/L Glucose 118 H (74-99) mg/dL POC Glucose (mg/dL) (70-110) mg/dL Total Bilirubin 1.6 H (0.2-1.3) mg/dL Ur Specific [place] 1.040 H (1.001-1.035) Urine Ketones 1+ H (Negative) Ur Leukocyte Esterase Small H (Negative) Urine WBC 21 H (0-5) /hpf Urine WBC Clumps Rare H (None) /hpf Urine Mucus Rare H (None) /hpf 06/25/24 06/26/24 06/26/24 Range/Units 23:06 05:27 05:27 WBC (3.8-10.6) k/uL RBC 4.05 L (4.30-5.90) m/uL Hct 38.5 L (39.0-53.0) % Neutrophils # (1.3-7.7) k/uL Lymphocytes # (1.0-4.8) k/uL APTT 76.9 H (22.0-30.0) sec Potassium 3.2 L (3.5-5.1) mmol/L Chloride 108 H (98-107) mmol/L Carbon Dioxide (22-30) mmol/L Glucose (74-99) mg/dL POC Glucose (mg/dL) (70-110) mg/dL Total Bilirubin (0.2-1.3) mg/dL Ur Specific [place] (1.001-1.035) Urine Ketones (Negative) Ur Leukocyte Esterase (Negative) Urine WBC (0-5) /hpf Urine WBC Clumps (None) /hpf Urine Mucus (None) /hpf 06/26/24 06/26/24 Range/Units 05:27 11:34 WBC (3.8-10.6) k/uL RBC (4.30-5.90) m/uL Hct (39.0-53.0) % Neutrophils # (1.3-7.7) k/uL Lymphocytes # (1.0-4.8) k/uL APTT 62.6 H (22.0-30.0) sec Potassium (3.5-5.1) mmol/L Chloride (98-107) mmol/L Carbon Dioxide (22-30) mmol/L Glucose (74-99) mg/dL POC Glucose (mg/dL) 162 H (70-110) mg/dL Total Bilirubin (0.2-1.3) mg/dL Ur Specific [place] (1.001-1.035) Urine Ketones (Negative) Ur Leukocyte Esterase (Negative) Urine WBC (0-5) /hpf Urine WBC Clumps (None) /hpf Urine Mucus (None) /hpf Assessment and Plan Assessment: Impression: Severe nonischemic cardiomyopathy and LV dysfunction patient had normal coronaries based on his cardiac catheterization. Acute systolic congestive heart failure Palpitations in a patient found to be in SVT requiring cardioversion prior to arrival to the emergency department Acute hypoxemic respiratory failure secondary to bilateral pleural effusions, secondary to acute systolic congestive heart failure Acute right lower extremity DVT, initiated on a heparin drip but transition today to Eliquis, CT angiogram of the chest showed no evidence of pulmonary embolism but the patient will require anticoagulation therapy either way. Specially with his DVT. Transient ST segment elevation, cardiac catheterization revealed normal coronary arteries History of vaping, marijuana use History of ADHD Family history of DVT in his mother History of anxiety Recommendation: Continue to monitor in the ICU for today. Continue diuretics/Lasix Titrate oxygen accordingly Cardiac meds to be addressed by cardiology on the case Continue GI and DVT prophylaxis Echocardiogram was reviewed Transition from heparin to Eliquis Will continue to follow Time with Patient: Less than 30
--- NOTE | 2024-06-26 17:18 | P.PN ---
Subjective Progress Note Date: 06/26/24 The patient is a 31-year-old male with history of ADHD, vaping marijuana who lives with his significant other. They have 3 flights of stairs and patient states he is climbing stairs and doing many strenuous activities with no problem. About 1 week patient started to have chest pain as intermittent. He was taking Sudafed [id number]. On the morning of admission patient developed palpitations EMS was called patient was found to be in SVT he was cardioverted. Patient during his hospitalization found to have volume overload he was taken to the [facility] had cardiac catheterization which was negative. The patient CTA did not show any pulmonary embolism however he was found to have a DVT and is currently on Eliquis. The patient received heparin prior to Eliquis. Patient currently denies any chest pain or shortness of breath. Objective - Vital Signs Vital signs: Vital Signs Temp 97.8 F 06/26/24 16:00 Pulse 96 06/26/24 16:45 Resp 26 H 06/26/24 16:45 BP 113/76 06/26/24 16:45 Pulse Ox 96 06/26/24 16:45 FiO2 60 06/26/24 05:00 Intake & Output 06/25/24 06/26/24 06/26/24 18:59 06:59 18:59 Intake Total 310 961.117 464.417 Output Total 3840 1295 865 Balance -3530 -333.883 -400.583 Weight 144 kg 135.3 kg Intake: IV 310 240 40 Sodium Chloride 0.9% 1, 60 240 40 000 ml @ 20 mls/hr IV . Q24H TRU Rx#:[id number] Intake, IV Titration 241.117 174.417 Amount Heparin Sod,Pork in 0.45% 241.117 174.417 NaCl 25,000 unit In 0.45 % NaCl 1 250ml.bag @ 15. 972 UNITS/KG/HR 23 mls/hr IV .[id number] TRU Rx#: [id number] Oral 480 250 Output: Urine 3840 1295 865 Other: Voiding Method Indwelling Catheter Indwelling Catheter Indwelling Catheter - Constitutional General appearance: Present: no acute distress - Respiratory Respiratory: bilateral: CTA - Cardiovascular Rhythm: regular - Gastrointestinal General gastrointestinal: Present: normal bowel sounds - Integumentary Integumentary: Present: normal - Labs CBC & Chem 7: 06/26/24 05:27 06/26/24 05:27 Labs: Abnormal Lab Results - Last 24 Hours (Table) 06/25/24 06/25/24 06/26/24 Range/Units 22:45 23:06 05:27 RBC 4.05 L (4.30-5.90) m/uL Hct 38.5 L (39.0-53.0) % APTT 76.9 H (22.0-30.0) sec Potassium (3.5-5.1) mmol/L Chloride (98-107) mmol/L POC Glucose (mg/dL) (70-110) mg/dL Ur Specific [place] 1.040 H (1.001-1.035) Urine Ketones 1+ H (Negative) Ur Leukocyte Esterase Small H (Negative) Urine WBC 21 H (0-5) /hpf Urine WBC Clumps Rare H (None) /hpf Urine Mucus Rare H (None) /hpf 06/26/24 06/26/24 06/26/24 Range/Units 05:27 05:27 11:34 RBC (4.30-5.90) m/uL Hct (39.0-53.0) % APTT 62.6 H (22.0-30.0) sec Potassium 3.2 L (3.5-5.1) mmol/L Chloride 108 H (98-107) mmol/L POC Glucose (mg/dL) 162 H (70-110) mg/dL Ur Specific [place] (1.001-1.035) Urine Ketones (Negative) Ur Leukocyte Esterase (Negative) Urine WBC (0-5) /hpf Urine WBC Clumps (None) /hpf Urine Mucus (None) /hpf Assessment and Plan (1) NSTEMI (non-ST elevated myocardial infarction) Current Visit: Yes Status: Acute Code(s): I21.4 - NON-ST ELEVATION (NSTEMI) MYOCARDIAL INFARCTION SNOMED Code(s): 90486206 (2) Tachycardia Current Visit: Yes Status: Acute Code(s): R00.0 - TACHYCARDIA, UNSPECIFIED SNOMED Code(s): 9814032 (3) Cardiomyopathy Narrative/Plan: Continue per cardiology recommendations Current Visit: Yes Status: Acute Code(s): I42.9 - CARDIOMYOPATHY, UNSPECIFIED SNOMED Code(s): 17205499 (4) DVT (deep venous thrombosis) Current Visit: Yes Status: Acute Code(s): I82.409 - ACUTE EMBOLISM AND THOMBOS UNSP DEEP VN UNSP LOWER EXTREMITY SNOMED Code(s): 505194981 Plan: Patient with severe cardiomyopathy with EF of 15%. The patient's catheterization was negative. He feels his shortness of breath and chest pain have improved. Continue Eliquis
[2024-06-26 17:59] LABS: Glucose,Whole Blood 115 mg/dL (70-110)
[2024-06-26] MEDS: FUROSEMIDE 10 MG/ML 4 ML VIAL IV SCH (20:10)
[2024-06-26 21:07] LABS: Glucose,Whole Blood 135 mg/dL (70-110)
[2024-06-26 23:52] LABS: Glucose,Whole Blood 110 mg/dL (70-110)
[2024-06-27] MEDS: FUROSEMIDE 10 MG/ML 4 ML VIAL IV SCH ×2 (03:50→07:47)
[2024-06-27 05:54] LABS: Basophils % (A) 0 %; Eosinophils # (A) 0.1 k/uL (0-0.7); Eosinophils % (A) 1 %; HGB 14.5 gm/dL (13.0-17.5); Lymphocytes # (A) 1.1 k/uL (1.0-4.8); Lymphocytes % (A) 16 %; MCH 32.5 pg (25.0-35.0); MCHC 34.5 g/dL (31.0-37.0); MCV 94.1 fL (80.0-100.0); Mean Platelet Volume 9.4; Monocytes # (A) 0.3 k/uL (0-1.0); Monocytes % (A) 5 %; Neutrophils % (A) 76 %; Platelet Count 186 k/uL (150-450); RBC 4.47 m/uL (4.30-5.90); RDW 13.5 % (11.5-15.5); WBC 6.6 k/uL (3.8-10.6)
[2024-06-27 06:10] LABS: African American GFR (CKD) >90 (>60 ml/min/1.73 sqM); Anion Gap 8 mmol/L; Blood Urea Nitrogen 9 mg/dL (9-20); Calcium 9.4 mg/dL (8.4-10.2); Carbon Dioxide 30 mmol/L (22-30); Chloride 100 mmol/L (98-107); Glucose 90 mg/dL (74-99); Non-African American GFR(CKD) >90 (>60 ml/min/1.73 sqM); Potassium 3.3 mmol/L (3.5-5.1); Sodium 138 mmol/L (137-145)
[2024-06-27] MEDS: POTASSIUM CHLORIDE ER 20 MEQ TAB.ER PO SCH (06:42)
[2024-06-27] MEDS: SPIRONOLACTONE 25 MG TAB PO SCH (09:47)
--- NOTE | 2024-06-27 10:56 | P.PN ---
Subjective Progress Note Date: 06/27/24 HISTORY OF PRESENT ILLNESS: This is a 29-year-old male with a past medical history significant for ADD, anxiety, nicotine dependence, and occasional marijuana use. Patient does not follow with a software support engineer. We have been asked to see the patient in consultation for SVT, cardiomegaly. Patient examined at the bedside in the emergency room. Patient states that he has had an upper respiratory infection /cold all week. He states that his mom was in town visiting and she was also sick at that time. His mom eventually went to the hospital and was diagnosed with pneumonia. He states that he woke up from sleep with a feeling of his heart racing. He also reports having some pressure on his chest. According to ER documentation the patient was found to be in SVT and was apparently cardioverted by EMS. There is no documentation that patient was given adenosine. There are no telemetry tracings of SVT available from EMS at the time of examination. The patient states about 30 minutes prior to our evaluation he had another episode of chest pain where he felt pain in the middle of his chest along with feeling diaphoretic and feverish. He states that he got to nitro which did help his chest pain but it is still not completely gone. DIAGNOSTICS: - EKG reveals sinus mechanism with T wave inversions in lead I, V4V6 along with mild ST depression - Chest xray prominent lung markings and hazy opacities, suggesting pulmonary vascular congestion and edema. Small pleural effusions. -Chest CTA: No central or large pulmonary embolism identified. No aortic aneurysm or dissection. Interlobular septal thickening and groundglass opacities, concerning for fluid overload and pulmonary edema. Prominence of the bronchial pavon is probably secondary to fluid overload. Bronchitis is not excluded. Moderate right and small left pleural effusion. Nonspecific prominent mediastinal and hilar lymph nodes. Shotty left axillary lymph nodes are nonspecific fat stranding - Laboratory data: - Current home cardiac medications include none 06/26 Yesterday, patient underwent cardiac catheterization which revealed normal coronary arteries, severe LV dysfunction, nonischemic cardiomyopathy, severely elevated LVEDP. Echocardiogram reveals EF 15 to 20%, RV dilatation with reduced systolic function, severe LA dilatation, moderate MR likely functional, no pericardial effusion. Patient is seen today in the intensive care unit. He has been transitioned off of IV heparin and started on Eliquis for PE per pulmonary. Patient is also on IV Lasix 40 mg every 8 hours. Patient states that he has had difficulty breathing for a week or so. No fever or chills. He denies having any chest pain and no chest pressure and no lower extremity edema. He states he is feeling better from yesterday. Gustafson catheter in place with output approximately 3800 and weight is documented is down 10 kg. Discussed results of the cardiac catheterization and echocardiogram with possible diagnosis of myocarditis, Takotsubo but most likely some other underlying etiology for cardiomyopathy due to the RV dilatation. Patient is currently on nitroglycerin drip. Patient drinks alcohol only occasionally. 06/27 Patient is seen and examined in the intensive care unit. He states he had a good night with no issues overnight. His breathing is better today. No chest pressure. He is now down to 2 L nasal cannula. Blood pressure 102/72, heart rate 70. Sed rate came back normal at 8. CBC BMP unremarkable except for potassium of 3.3. Yesterday nitroglycerin drip was discontinued. Patient has been maintained on IV Lasix 40 mg every 8 hours. Patient is diuresing well. PHYSICAL EXAM: VITAL SIGNS: Reviewed. GENERAL: Well-developed in no acute distress. HEENT: Head is normocephalic. Pupils are equal, round. Sclerae anicteric. Mucous membranes of the mouth are moist. Neck supple. No JVD or thyromegaly LUNGS: Respirations even and unlabored. Lungs essentially clear to auscultation bilaterally. HEART: Regular rate and rhythm. S1 and S2 heard. ABDOMEN: Soft. Nondistended. Nontender. EXTREMITIES: Normal range of motion. No clubbing or cyanosis. Peripheral pulses intact. No lower extremity edema NEUROLOGIC: Awake and alert. Oriented x 3. ASSESSMENT: Recent upper respiratory infection Elevated troponins, Non-STEMI likely myocarditis, Takotsubo, other cause, however ruled out underlying CAD Reported SVT requiring cardioversion, no telemetry tracings from EMS available Acute kidney injury Pulmonary embolism Nonischemic cardiomyopathy Leukocytosis Bilateral pleural effusions, per CTA History of ADD History of anxiety Nicotine dependence Occasional marijuana use Morbid obesity: BMI 40.0 PLAN: Continue patient on the following cardiac medications: Aspirin, atorvastatin, and metoprolol Continue IV Lasix 40 mg every 8 hours Continue losartan 25 mg daily and Farxiga 10 mg daily Monitor BIJAN, daily weights, electrolytes and renal function Obtain protein electrophoresis, free lambda light chain and free kappa light chain Smoking cessation recommended. Patient to be referred to [place] quit line upon discharge Abstinence from marijuana encouraged Further recommendations pending patient course Nurse practitioner note has been reviewed by physician. Signing provider agrees with the documented findings, assessment, and plan of care documented by STAPLER HAND as a scribe. Objective - Vital Signs Vital signs: Vital Signs Temp 97.8 F 06/27/24 04:00 Pulse 70 06/27/24 07:00 Resp 14 06/27/24 07:00 BP 102/72 06/27/24 07:00 Pulse Ox 98 06/27/24 07:47 FiO2 60 06/26/24 05:00 Intake & Output 06/26/24 06/27/24 06/27/24 18:59 06:59 18:59 Intake Total 464.417 480 Output Total 1015 8350 600 Balance -550.583 -7870 -600 Weight 131.1 kg Intake: IV 40 Sodium Chloride 0.9% 1, 40 000 ml @ 20 mls/hr IV . Q24H TRU Rx#:[id number] Intake, IV Titration 174.417 Amount Heparin Sod,Pork in 0.45% 174.417 NaCl 25,000 unit In 0.45 % NaCl 1 250ml.bag @ 15. 972 UNITS/KG/HR 23 mls/hr IV .[id number] TRU Rx#: [id number] Oral 250 480 Output: Urine 1015 8350 600 Other: Voiding Method Indwelling Catheter Indwelling Catheter - Labs CBC & Chem 7: 06/27/24 05:18 06/27/24 05:18 Labs: Abnormal Lab Results - Last 24 Hours (Table) 06/26/24 06/26/24 06/26/24 Range/Units 11:34 17:58 21:05 Potassium (3.5-5.1) mmol/L POC Glucose (mg/dL) 162 H 115 H 135 H (70-110) mg/dL 06/27/24 Range/Units 05:18 Potassium 3.3 L (3.5-5.1) mmol/L POC Glucose (mg/dL) (70-110) mg/dL Microbiology - Last 24 Hours (Table) 06/25/24 14:18 Blood Culture - Preliminary Blood
--- NOTE | 2024-06-27 12:33 | P.PN ---
Subjective Progress Note Date: 06/27/24 Principal diagnosis: Severe nonischemic cardiomyopathy, possible supraventricular tachycardia requiring cardioversion and acute systolic congestive heart failure This is a 29-year-old male patient with a known history of ADHD, anxiety, vaping, marijuana use who moved here recently from [place] about 6 months ago. No current primary care provider. No home medications. He states he had been having some chest discomfort across his chest for about a week. He was using Tylenol for the pain. He woke up after midnight this morning with his heart racing and palpitations. He had gotten up to get a drink of water and collapsed. Unclear if he lost consciousness. His girlfriend called 911 and he was brought here by EMS. He was found to be in SVT and was cardioverted by E MTs. He was fairly asymptomatic when he arrived at the emergency room. He did state he had called in sick earlier this week due to sore throat cough and congestion. His mom had recently been admitted for bilateral pneumonia and she had developed a DVT. CT angiogram performed this morning ruled out central or large pulmonary embolus however suboptimal contrast bolus timing could not exclude PE in the pulmonary arterial branches. No evidence of aortic aneurysm or dissection. There was interlobular septal thickening and groundglass opacities concerning for fluid overload and pulmonary edema. There is moderate right and small left pleural effusions. EKG revealed sinus tachycardia with so me ST and T wave abnormalities laterally. The patient was taken to the cardiac lab and was found to have normal coronary arteries. Shortly after being admitted to the selective care unit the patient developed acute hypoxemia, diaphoresis tachycardia requiring BiPAP placement 12/5 and 100% FiO2. He was transferred to the intensive care unit for closer monitoring. He is seen there today in consultation. He is currently awake and alert. He remains on BiPAP. He denies any further chest discomfort. Dopplers of the lower extremity were positive for a DVT on the right and he was initiated back on a heparin drip. Echocardiogram is pending. Viral screen was negative. He received Lasix 40 mg IVP x 1 with 2 L of urine output. White count 12.1. Hemoglobin 14.8. Platelets 270. Sodium 138. Potassium 4.0. Bicarb 21. BUN 15. Creatinine 1.17. Troponin 0.182, 0.941. Urine drug screen positive for marijuana. Seen today on 06/26/2024, patient remains in the ICU, on 6 L nasal cannula with O2 saturation of 100%. Chest x-ray showing improvement in his pulmonary edema remains on Lasix at 40 mg IV push every 8 hours. Patient is on heparin, nitroglycerin drip, and his echocardiogram showed significant severe cardiomyopathy with LV dysfunction ejection fraction of 15% patient also has moderate mitral regurgitation. Considering the overall picture, I believe the patient clearly has severe nonischemic cardiomyopathy since his cardiac catheterization did not show any evidence of any coronary artery disease, and his cardiomyopathy issues are now being addressed by cardiology on the case. Patient was placed on Eliquis 2 discontinue heparin since he had DVT in the lower extremities, CT angiogram failed to show any significant pulmonary embolism however the patient will need to be treated with anticoagulation therapy either way. Patient was also placed on fark [employer], and he feels better today compared to how he felt yesterday. WBC count is 8.7 hemoglobin 13.1 PTT is 62.6 basic metabolic profile is normal except for low potassium being addressed as per protocol chest x-ray continues to show cardiomegaly and mild interstitial edema improved compared to the admission x-ray yesterday Seen today on 06/27/2024, patient remains in the ICU, he is on 3 L nasal cannula, not in distress, feeling better overall compared to how he felt when he came in. Remains on Lasix and Aldactone he is also on Eliquis now. Cardiology is recommending a LifeVest considering his severe cardiomyopathy and LV dysfunction. WBC count is 6.6 hemoglobin 14.5 electrolytes are normal except for low potassium of 3.3. Renal functioning is normal Objective - Vital Signs Vital signs: Vital Signs Temp 97.7 F 06/27/24 08:00 Pulse 81 06/27/24 11:00 Resp 14 06/27/24 11:00 BP 114/76 06/27/24 11:00 Pulse Ox 96 06/27/24 11:00 FiO2 60 06/26/24 05:00 Intake & Output 06/26/24 06/27/24 06/27/24 18:59 06:59 18:59 Intake Total 464.417 480 200 Output Total 1012 3542 2159 Balance -550.583 -7870 -1950 Weight 131.1 kg Intake: IV 40 Sodium Chloride 0.9% 1, 40 000 ml @ 20 mls/hr IV . Q24H TRU Rx#:[id number] Intake, IV Titration 174.417 Amount Heparin Sod,Pork in 0.45% 174.417 NaCl 25,000 unit In 0.45 % NaCl 1 250ml.bag @ 15. 972 UNITS/KG/HR 23 mls/hr IV .[id number] TRU Rx#: [id number] Oral 250 480 200 Output: Urine 1015 8350 2150 Other: Voiding Method Indwelling Catheter Indwelling Catheter Indwelling Catheter - Exam GENERAL EXAM: 29-year-old white male in no distress HEAD: Normocephalic. EYES: Normal reaction of pupils, equal size. NOSE: Clear with pink turbinates. THROAT: No erythema or exudates. NECK: No masses, no JVD. CHEST: No chest wall deformity. LUNGS: Diminished breath sounds at the bases no crackles rhonchi or wheezes CVS: S1 and S2 normal with over 6 systolic murmur at the left lower sternal border ABDOMEN: No hepatosplenomegaly, normal bowel sounds, no guarding or rigidity. SKIN: No rashes CENTRAL NERVOUS SYSTEM: Alert and oriented x 3 no gross focal neurologic deficit. EXTREMITIES: No clubbing, no edema, no cyanosis. No tenderness in lower extremities noted - Labs CBC & Chem 7: 06/27/24 05:18 06/27/24 05:18 Labs: Abnormal Lab Results - Last 24 Hours (Table) 06/26/24 06/26/24 06/27/24 Range/Units 17:58 21:05 05:18 Potassium 3.3 L (3.5-5.1) mmol/L POC Glucose (mg/dL) 115 H 135 H (70-110) mg/dL Microbiology - Last 24 Hours (Table) 06/25/24 22:45 Urine Culture - Final Urine,Voided 06/25/24 14:18 Blood Culture - Preliminary Blood Assessment and Plan Assessment: Impression: Severe nonischemic cardiomyopathy and LV dysfunction patient had normal coronaries based on his cardiac catheterization. Acute systolic congestive heart failure Palpitations in a patient found to be in SVT requiring cardioversion prior to arrival to the emergency department Acute hypoxemic respiratory failure secondary to bilateral pleural effusions, se condary to acute systolic congestive heart failure Acute right lower extremity DVT, initiated on a heparin drip but transition today to Eliquis, CT angiogram of the chest showed no evidence of pulmonary embolism but the patient will require anticoagulation therapy either way. Specially with his DVT. Transient ST segment elevation, cardiac catheterization revealed normal coronary arteries History of vaping, marijuana use History of ADHD Family history of DVT in his mother History of anxiety Recommendation: Patient should have LifeVest Patient could be transferred to a monitored bed and selective not quite ready for discharge yet Titrate oxygen accordingly Continue Lasix and Aldactone Continue GI and DVT prophylaxis Continue Eliquis Will continue to follow Time with Patient: Less than 30
--- NOTE | 2024-06-27 19:07 | P.PN ---
Subjective Progress Note Date: 06/27/24 (delayd charting seen at 0930) Patient seen and examined at bedside. No chest pain. Shortness of breath improving. No cough. No personal history of cardiac disease. No significant family history of cardiac disease. Vital signs reviewed General: Nontoxic, no distress, appears at stated age Cardiovascular: S1S2 reg, no murmur Lungs: Rhonchi bilateral bases, no accessory muscle use Abdominal: Soft, nontender to palpation, no guarding Ext: No gross muscle atrophy, 2+ edema b/l lower extremities, no contractures Neuro: CN II-XI grossly intact, no focal neuro deficits Psych: Alert, oriented, appropriate affect Assessment/Plan: Systolic ischemic cardiomyopathy with acute exacerbation, newly discovered with EF 15 to 20% in the setting of severe LV dilatation and severe RV dysfunction. Myocarditis, undetermined etiology Elevated troponin secondary to myocarditis Acute hypoxic respiratory failure, improved History of SVT status post cardioversion by EMS Hypertension -Off BiPAP -Pulmonary note reviewed: LifeVest, transferred to [facility], titrate oxygen as able, continue Lasix and Aldactone. -Aldactone 25 mg 200 together -Metoprolol 25 mg twice daily, Cozaar 25 mg daily, Farxiga 10 mg daily, aspirin 81 mg daily -Cardiac catheterization with angiographically normal coronaries -Cardiology recommendations reviewed: Continue with Lasix, losartan, Farxiga, atorvastatin, and metoprolol. Check protein electrophoresis for free lambda light chain and free kappa light chain -Lasix 40 mg IV 3 times daily -Strict I's and O's, daily weights Right lower extremity DVT -Nonocclusive DVT in the right popliteal vein-CTA of the chest was negative, but pulmonary with concerns for possible none visualized pulmonary embolism -Would not necessarily require anticoagulation for nonocclusive popliteal vein DVT which is below the knee -Would consider VQ scan once status is optimized Hypokalemia - replace and recheck in AM Acute kidney injury, resolved Mild leukocytosis, resolved Imaging: None new Data Review: Labs reviewed and remarkable for potassium of 3.3. Remainder of CBC and BMP are unremarkable DVT prophylaxis: Eliquis Anticipated discharge date: Pending Clinical Course Anticipated discharge place: Pending Clinical Course This dictation was prepared using [employer] voice recognition software. Though every attempt is made to correct errors during dictation some may still exist. Objective - Vital Signs Vital signs: Vital Signs Temp 98.2 F 06/27/24 16:26 Pulse 79 06/27/24 16:26 Resp 20 06/27/24 16:26 BP 108/67 06/27/24 16:26 Pulse Ox 97 06/27/24 17:44 FiO2 60 06/26/24 05:00 Intake & Output 06/27/24 06/27/24 06/28/24 06:59 18:59 06:59 Intake Total 480 600 Output Total 8350 4850 Balance -0338 -1179 Weight 131.1 kg Intake: Oral 480 600 Output: Urine 8350 4850 Other: Voiding Method Indwelling Catheter Indwelling Catheter - Labs CBC & Chem 7: 06/27/24 05:18 06/27/24 05:18 Labs: Abnormal Lab Results - Last 24 Hours (Table) 06/26/24 06/27/24 Range/Units 21:05 05:18 Potassium 3.3 L (3.5-5.1) mmol/L POC Glucose (mg/dL) 135 H (70-110) mg/dL Microbiology - Last 24 Hours (Table) 06/25/24 22:45 Urine Culture - Final Urine,Voided 06/25/24 14:18 Blood Culture - Preliminary Blood
[2024-06-28 10:00] LABS: HCT 50.9 % (39.0-53.0); HGB 16.4 gm/dL (13.0-17.5); MCH 31.2 pg (25.0-35.0); MCHC 32.3 g/dL (31.0-37.0); MCV 96.5 fL (80.0-100.0); Mean Platelet Volume 8.9; Platelet Count 275 k/uL (150-450); RBC 5.27 m/uL (4.30-5.90)
[2024-06-28 10:11] LABS: ALT 31 U/L (4-49); AST 36 U/L (17-59); African American GFR (CKD) >90 (>60 ml/min/1.73 sqM); Albumin 4.5 g/dL (3.5-5.0); Alkaline Phosphatase 66 U/L (38-126); Anion Gap 10 mmol/L; Blood Urea Nitrogen 15 mg/dL (9-20); Carbon Dioxide 34 mmol/L (22-30); Chloride 94 mmol/L (98-107); Glucose 74 mg/dL (74-99); Magnesium 1.8 mg/dL (1.6-2.3); Non-African American GFR(CKD) 85 (>60 ml/min/1.73 sqM); Potassium 3.8 mmol/L (3.5-5.1); Sodium 138 mmol/L (137-145); Total Protein 7.4 g/dL (6.3-8.2)
[2024-06-28 11:25] LABS: Protein, Total 6.7 g/dL (6.2-8.2)
[2024-06-28 12:13] LABS: Free Kappa Lt Chain Qnt, Serum 2.86 mg/dL (0.33-1.94); Free Lambda Lt Chain Qnt, Seru 2.81 mg/dL (0.57-2.63)
--- NOTE | 2024-06-28 13:30 | P.PN ---
Subjective Progress Note Date: 06/28/24 Principal diagnosis: Cardiomyopathy. This is a 29-year-old male patient with a known history of ADHD, anxiety, vaping, marijuana use who moved here recently from [place] about 6 months ago. No current primary care provider. No home medications. He states he had been having some chest discomfort across his chest for about a week. He was using Tylenol for the pain. He woke up after midnight this morning with his heart racing and palpitations. He had gotten up to get a drink of water and collapsed. Unclear if he lost consciousness. His girlfriend called 911 and he was brought here by EMS. He was found to be in SVT and was cardioverted by pre owned sales consultant. He was fairly asymptomatic when he arrived at the emergency room. He did state he had called in sick earlier this week due to sore throat cough and congestion. His mom had recently been admitted for bilateral pneumonia and she had developed a DVT. CT angiogram performed this morning ruled out central or large pulmonary embolus however suboptimal contrast bolus timing could not exclude PE in the pulmonary arterial branches. No evidence of aortic aneurysm or dissection. There was interlobular septal thickening and groundglass opacities concerning for fluid overload and pulmonary edema. There is moderate right and small left pleural effusions. EKG revealed sinus tachycardia with some ST and T wave abnormalities laterally. The patient was taken to the cardiac lab and was found to have normal coronary arteries. Shortly after being admitted to the selective care unit the patient developed acute hypoxemia, diaphoresis tachycardia requiring BiPAP placement 12/5 and 100% FiO2. He was transferred to the intensive care unit for closer monitoring. He is seen there today in consultation. He is currently awake and alert. He remains on BiPAP. He denies any further chest discomfort. Dopplers of the lower extremity were positive for a DVT on the right and he was initiated back on a heparin drip. Echocardiogram is pending. Viral screen was negative. He received Lasix 40 mg IVP x 1 with 2 L of urine output. White count 12.1. Hemoglobin 14.8. Platelets 270. Sodium 138. Potassium 4.0. Bicarb 21. BUN 15. Creatinine 1.17. Troponin 0.182, 0.941. Urine drug screen positive for marijuana. Seen today on 06/26/2024, patient remains in the ICU, on 6 L nasal cannula with O2 saturation of 100%. Chest x-ray showing improvement in his pulmonary edema remains on Lasix at 40 mg IV push every 8 hours. Patient is on heparin, nitroglycerin drip, and his echocardiogram showed significant severe c ardiomyopathy with LV dysfunction ejection fraction of 15% patient also has moderate mitral regurgitation. Considering the overall picture, I believe the patient clearly has severe nonischemic cardiomyopathy since his cardiac catheterization did not show any evidence of any coronary artery disease, and his cardiomyopathy issues are now being addressed by cardiology on the case. Patient was placed on Eliquis 2 discontinue heparin since he had DVT in the lower extremities, CT angiogram failed to show any significant pulmonary embolism however the patient will need to be treated with anticoagulation therapy either way. Patient was also placed on fark [employer], and he feels better today compared to how he felt yesterday. WBC count is 8.7 hemoglobin 13.1 PTT is 62.6 basic metabolic profile is normal except for low potassium being addressed as per protocol chest x-ray continues to show cardiomegaly and mild interstitial edema improved compared to the admission x-ray yesterday Seen today on 06/27/2024, patient remains in the ICU, he is on 3 L nasal cannula, not in distress, feeling better overall compared to how he felt when he came in. Remains on Lasix and Aldactone he is also on Eliquis now. Cardiology is recommending a LifeVest considering his severe cardiomyopathy and LV dysfuncti on. WBC count is 6.6 hemoglobin 14.5 electrolytes are normal except for low potassium of 3.3. Renal functioning is normal Progress note dated June 28, 2024. 29-year-old male seen today in room 355. He is currently on room air. No IV fluids. The patient is hoping to be discharged later today. The patient denies any shortness of breath, cough, wheezing, chest tightness, phlegm production, chest pain, pressure, or palpitations. Current labs include a white count 13, hemoglobin 16.4, hematocrit 50.9, and a normal platelet count. Sodium 138, potassium 3.8, chlorides 94, CO2 34, BUN 15, creatinine 1.15. Glucose is 85. Albumin is 4.5. Objective - Vital Signs Vital signs: Vital Signs Temp 97.7 F 06/28/24 11:05 Pulse 76 06/28/24 11:05 Resp 14 10/07/24 11:05 BP 106/64 06/28/24 11:05 Pulse Ox 97 06/28/24 11:05 FiO2 60 06/26/24 05:00 Intake & Output 06/27/24 06/28/24 06/28/24 18:59 06:59 18:59 Intake Total 140 38 5947 Output Total 4850 3250 700 Balance -4250 -3210 455 Weight 135.9 kg Intake: IV 40 15 Invasive Line 1 20 5 Invasive Line 2 20 10 Oral 600 1140 Output: Urine 4850 3250 700 Uretheral (Gustafson) 600 Other: Voiding Method Indwelling Catheter Indwelling Catheter Indwelling Catheter - Exam No acute distress, oriented 3. HEENT examination is grossly unremarkable. Mucous membranes are moist. No oral lesions. Neck supple. Full range of motion. No adenopathy thyromegaly or neck vein distention. Cardiovascular examination reveals regular rhythm rate. S1-S2 normal. No S3 or S4. A soft systolic murmur is noted. Lungs reveal clear breath sounds. Her sounds are equal bilaterally. No adventitious lung sounds including wheezes rhonchi or crackles. Abdomen soft bowel sounds are heard. No masses or tenderness. Extremities are intact. No cyanosis clubbing or edema. Skin is without rash or lesion. Neurologic examination is brief but nonfocal. - Labs CBC & Chem 7: 06/28/24 09:10 06/28/24 09:10 Labs: Abnormal Lab Results - Last 24 Hours (Table) 06/27/24 06/28/24 06/28/24 Range/Units 05:18 09:10 09:10 WBC 13.0 H (3.8-10.6) k/uL Chloride 94 L (98-107) mmol/L Carbon Dioxide 34 H (22-30) mmol/L Total Bilirubin 2.0 H (0.2-1.3) mg/dL Free [place] LC, Quant 2.86 H (0.33-1.94) mg/dL Free Lambda LC, Quant 2.81 H (0.57-2.63) mg/dL Microbiology - Last 24 Hours (Table) 06/25/24 14:18 Blood Culture - Preliminary Blood Assessment and Plan Assessment: Severe nonischemic cardiomyopathy. Acute systolic CHF. Acute SVT, requiring cardioversion. Acute hypoxemic respiratory failure secondary to bilateral pleural effusions, a nd systolic CHF. Acute right lower extremity DVT. No evidence of pulmonary embolism on CT angiogram. Transient ST segment elevation. Normal coronary arteries on cardiac catheterization. History of vaping, marijuana use. History of ADHD. Family history of DVT. History of anxiety. Plan: Plan dated June 28, 2024. Clinically, the patient's doing well. The patient is currently on room air. The patient is pacing the room, and hoping that he will be discharged later today. He is on room air. No IV fluids. I believe he is waiting for a LifeVest. Will continue to follow the patient, make recommendations along the way. Prognosis is certainly guarded. Labs, x-rays, and all medications have been reviewed. Time with Patient: Less than 30
--- NOTE | 2024-06-28 16:21 | P.PN ---
Subjective Progress Note Date: 06/28/24 HISTORY OF PRESENT ILLNESS: This is a 29-year-old male with a past medical history significant for ADD, anxiety, nicotine dependence, and occasional marijuana use. Patient does not follow with a urban planning professor. We have been asked to see the patient in consultation for SVT, cardiomegaly. Patient examined at the bedside in the emergency room. Patient states that he has had an upper respiratory infection /cold all week. He states that his mom was in town visiting and she was also sick at that time. His mom eventually went to the hospital and was diagnosed with pneumonia. He states that he woke up from sleep with a feeling of his heart racing. He also reports having some pressure on his chest. According to ER documentation the patient was found to be in SVT and was apparently cardioverted by EMS. There is no documentation that patient was given adenosine. There are no telemetry tracings of SVT available from EMS at the time of examination. The patient states about 30 minutes prior to our evaluation he had another episode of chest pain where he felt pain in the middle of his chest along with feeling diaphoretic and feverish. He states that he got to nitro which did help his chest pain but it is still not completely gone. DIAGNOSTICS: - EKG reveals sinus mechanism with T wave inversions in lead I, V4V6 along with mild ST depression - Chest xray prominent lung markings and hazy opacities, suggesting pulmonary vascular congestion and edema. Small pleural effusions. -Chest CTA: No central or large pulmonary embolism identified. No aortic aneurysm or dissection. Interlobular septal thickening and groundglass opacities, concerning for fluid overload and pulmonary edema. Prominence of the bronchial pavon is probably secondary to fluid overload. Bronchitis is not excluded. Moderate right and small left pleural effusion. Nonspecific prominent mediastinal and hilar lymph nodes. Shotty left axillary lymph nodes are nonspecific fat stranding - Laboratory data: - Current home cardiac medications include none 06/26 Yesterday, patient underwent cardiac catheterization which revealed normal coronary arteries, severe LV dysfunction, nonischemic cardiomyopathy, severely elevated LVEDP. Echocardiogram reveals EF 15 to 20%, RV dilatation with reduced systolic function, severe LA dilatation, moderate MR likely functional, no pericardial effusion. Patient is seen today in the intensive care unit. He has been transitioned off of IV heparin and started on Eliquis for PE per pulmonary. Patient is also on IV Lasix 40 mg every 8 hours. Patient states that he has had difficulty breathing for a week or so. No fever or chills. He denies having any chest pain and no chest pressure and no lower extremity edema. He states he is feeling better from yesterday. Gustafson catheter in place with output approximately 3800 and weight is documented is down 10 kg. Discussed results of the cardiac catheterization and echocardiogram with possible diagnosis of myocarditis, Takotsubo but most likely some other underlying etiology for cardiomyopathy due to the RV dilatation. Patient is currently on nitroglycerin drip. Patient drinks alcohol only occasionally. 06/27 Patient is seen and examined in the intensive care unit. He states he had a good night with no issues overnight. His breathing is better today. No chest pressure. He is now down to 2 L nasal cannula. Blood pressure 102/72, heart rate 70. Sed rate came back normal at 8. CBC BMP unremarkable except for potassium of 3.3. Yesterday nitroglycerin drip was discontinued. Patient has been maintained on IV Lasix 40 mg every 8 hours. Patient is diuresing well. June 28, 2024 Patient is seen and examined at bedside. Patient was transferred out of ICU yesterday. Patient is hemodynamically stable. Kidney function stays stable. Good urine output. PHYSICAL EXAM: VITAL SIGNS: Reviewed. GENERAL: Well-developed in no acute distress. HEENT: Head is normocephalic. Pupils are equal, round. Sclerae anicteric. Mucous membranes of the mouth are moist. Neck supple. No JVD or thyromegaly LUNGS: Respirations even and unlabored. Lungs essentially clear to auscultation bilaterally. HEART: Regular rate and rhythm. S1 and S2 heard. ABDOMEN: Soft. Nondistended. Nontender. EXTREMITIES: Normal range of motion. No clubbing or cyanosis. Peripheral pulses intact. No lower extremity edema NEUROLOGIC: Awake and alert. Oriented x 3. ASSESSMENT: Recent upper respiratory infection Elevated troponins, Non-STEMI likely myocarditis, Takotsubo, other cause, however ruled out underlying CAD Reported SVT requiring cardioversion, no telemetry tracings from EMS available Acute kidney injury Pulmonary embolism Dilated nonischemic cardiomyopathy, EF 15 to 20% Leukocytosis Bilateral pleural effusions, per CTA History of ADD History of anxiety Nicotine dependence Occasional marijuana use Morbid obesity: BMI 40.0 PLAN: Discontinue IV Lasix. Start Bumex 1 mg p.o. daily. Discontinue losartan. Start Entresto 24/26 mg twice daily from tomorrow Farxiga 10 mg daily Obtain LifeVest for dilated cardiomyopathy for primary prevention of sudden cardiac Await protein electrophoresis, free lambda light chain and free kappa light chain Smoking cessation recommended. Patient to be referred to [place] quit line upon discharge Abstinence from marijuana encouraged Patient is okay to be discharged from cardiovascular standpoint with outpatient follow-up recommended. Follow-up with Dr. Winter in next 1 week Objective - Vital Signs Vital signs: Vital Signs Temp 97.7 F 06/28/24 11:05 Pulse 72 06/28/24 15:20 Resp 16 06/28/24 15:20 BP 102/61 06/28/24 15:20 Pulse Ox 100 06/28/24 15:20 FiO2 60 06/26/24 05:00 Intake & Output 06/27/24 06/28/24 06/28/24 18:59 06:59 18:59 Intake Total 466 34 4397 Output Total 4850 3250 700 Balance -4250 -3210 455 Weight 135.9 kg Intake: IV 40 15 Invasive Line 1 20 5 Invasive Line 2 20 10 Oral 600 1140 Output: Urine 4850 3250 700 Uretheral (Gustafson) 600 Other: Voiding Method Indwelling Catheter Indwelling Catheter Indwelling Catheter - Labs CBC & Chem 7: 06/28/24 09:10 06/28/24 09:10 Labs: Abnormal Lab Results - Last 24 Hours (Table) 06/27/24 06/28/24 06/28/24 Range/Units 05:18 09:10 09:10 WBC 13.0 H (3.8-10.6) k/uL Chloride 94 L (98-107) mmol/L Carbon Dioxide 34 H (22-30) mmol/L Total Bilirubin 2.0 H (0.2-1.3) mg/dL Free [place] LC, Quant 2.86 H (0.33-1.94) mg/dL Free Lambda LC, Quant 2.81 H (0.57-2.63) mg/dL Microbiology - Last 24 Hours (Table) 06/25/24 14:18 Blood Culture - Preliminary Blood
--- NOTE | 2024-06-28 18:09 | P.PN ---
Subjective Progress Note Date: 06/28/24 Hospital course: Patient is a 29-year-old male with a past medical history of ADHD, anxiety, vaping, and marijuana use. He presented to the emergency department on 06/25/2024 after reports of palpitations and chest pain followed by collapse and suspected syncopal episode. Chest pain and palpitations had reportedly been ongoing for approximately a week just after reports of recent upper respiratory infection consisting of sore throat, cough, and congestion. Reports of taking Tylenol and Sudafed for treatment. EMS was called to scene and per documentation in chart patient was found to be in SVT and was cardioverted. Upon arrival to our facility, patient underwent evaluation in the emergency department. Vital signs upon arrival show blood pressure 114/84, heart rate 101, respiratory rate 16, temp 98.1 F, and SpO2 of 96% on 2 L. EKG was completed showing sinus tachycardia at 112 bpm with T wave inversion in lateral leads I, II, aVL , V4-V6. Chest x-ray completed showing enlargement of cardiac silhouette, prominent lung markings with hazy opacities suggestive of pulmonary vascular congestion and edema with small bilateral pleural effusions. Labs were completed and reviewed. CBC revealed leukocytosis with WBC count of 17.3 coagulation profile showing elevated PT of 13.0 and INR of 1.2.. BMP showing hypokalemia with potassium of 3.4 and non-anion gap metabolic acidosis with chloride of 112, bicarb of 19, and anion gap of 7 with elevated creatinine of 1.35. Blood glucose was 118. Liver profile showing hyperbilirubinemia with total bili of 1.9 and elevated AST of 62. Initial troponin was 0.182. CRP elevated at 1.3. TSH 1.960 and procalcitonin negative at 0.09. Urine drug screen was positive for marijuana. Influenza A, influenza B, RSV, and COVID PCR were negative. CTA chest was completed for pulmonary emboli showing prominence of the bronchial pavon secondary to fluid overload, moderate right and left pleural effusions, and nonspecific prominent mediastinal and hilar lymph nodes with shotty axillary lymph nodes or nonspecific fat stranding. Patient was admitted under our services with consultation to cardiology. Repeat troponin resulting at 0.941. Urine drug screen positive only for marijuana. Patient was taken for cardiac catheterization revealing angiographically normal coronary arteries with severe LV dysfunction, nonischemic cardiomyopathy with estimated EF of 15 to 20%, and severely elevated left ventricular end-diastolic pressure. Ultrasound of right lower extremity showing a nonocclusive DVT involving the mid right popliteal vein. Echocardiogram completed showing an EF of 15 to 20% with a severely dilated left ventricular cavity, right ventricular dilation with reduced systolic function, severe left atrial dilation, and moderate mitral regurgitation. Patient developed hypoxia, tachycardia, and diaphoresis requiring continuous BiPAP and was transferred to the ICU for close monitoring. On 06/27/2024 patient was transferred to stepdown unit. Physical exam: Patient was seen and fully evaluated at bedside. He was sitting up in the chair and currently denies having any complaints at this time. Patient reports he is eager to go home. Discussed with patient cardiology clearing patient only once LifeVest is placed. Patient and verbalized understanding. Denies having any further questions, needs, concerns, or complaints at this time. Vital signs reviewed and stable. General: Nontoxic, no distress and appears stated age. Derm: Skin warm and dry, normal coloration for ethnicity. Head: Atraumatic, normocephalic and symmetric. Eyes: EOM's intact, no lid lag, and anicteric sclera Mouth: no lip lesions, mucus membranes moist Cardiovascular: regular rate and rhythm with normal S1S2, no murmur, positive posterior tibial pulses bilaterally, and cap refill < 2 seconds. Lungs: Respirations even, regular, and unlabored on room air. Lungs CTA bilaterally, no rhonchi, no rales, no wheezing, and no accessory muscle usage. Abdominal: soft, nontender to palpation, no guarding, no appreciable organomegaly Ext: ROM intact. No gross muscle atrophy, BLE edema, no contractures Neuro: Speech clear, face symmetrical and CN II-XII grossly intact with no noted focal neuro deficits Psych: Alert and oriented to person, place, time, and situation. Appropriate and pleasant affect. Assessment and Plan of Care: Nonischemic cardiomyopathy with EF of 15 to 20%, suspect myocarditis Acute systolic heart failure NSTEMI, cardiac cath negative revealing normal coronary arteries, suspect myocarditis SVT status post cardioversion Acute hypoxic respiratory failure secondary to HFrEF, improved -Cardiology following, discussed case with turbine assembler, patient cleared from their standpoint for discharge once LifeVest is obtained. -Pulmonology following, reviewed documentation in chart. -Patient to remain on continuous telemetry monitoring. - PEP 6.7, free kappa quant was 2.86 and free lambda quant also just slightly elevated at 2.81. -Continue cardiac medication regimen with aspirin 81 mg daily, Eliquis 10 mg twice daily, atorvastatin 20 mg nightly, Farxiga 10 mg daily, losartan 25 mg daily, metoprolol 25 mg twice daily, and Aldactone 25 mg daily. -Lasix was discontinued and patient started on Bumex 1 mg daily. -Strict I's and O's. -Close monitoring of renal function and electrolytes Acute right lower extremity popliteal DVT -Doppler revealed nonocclusive DVT of the right popliteal vein. -CTA chest was negative for pulmonary emboli. -Continue Eliquis 10 mg twice daily x 7 days followed by 5 mg twice daily. Hypokalemia -Resolved repeat morning potassium 3.8. Acute kidney injury -Resolved. History of vaping and marijuana use -Recommend cessation of use. ADHD Anxiety -Recommend avoiding stimulants such as Adderall. Data and Imaging reviewed: -Labs completed and reviewed. CBC showing WBC count of 13.0 otherwise normal findings. BMP showing mild metabolic alkalosis with chloride of 94, bicarb of 34, and anion gap of 10. Blood glucose 74. Magnesium 1.8. Liver profile showing slightly elevated total bili of 2.0. PEP 6.7, free kappa quant was 2.86 and free lambda quant also just slightly elevated at 2.81. -Vital signs reviewed and stable. Blood pressure 105/69, heart rate 96, respiratory rate 14, temp 97.7 F, and SpO2 of 100% on room air. CODE STATUS: Full code DVT prophylaxis: Eliquis Anticipated discharge date: Pending clinical course Anticipated discharge place: Pending clinical course Patient was seen independently by Nurse Pracitioner. This document was prepared using [employer] dictation software. Please allow for errors in protective signal installer, while rare they do occur. I reviewed the documentation as provided by the TREY above, who is the original author of this note. I agree with the documented assessment and plan, with the following changes: none Objective - Vital Signs Vital signs: Vital Signs Temp 97.7 F 06/28/24 08:00 Pulse 96 06/28/24 08:00 Resp 14 06/28/24 08:00 BP 105/69 06/28/24 08:00 Pulse Ox 100 06/28/24 08:00 FiO2 60 06/26/24 05:00 Intake & Output 06/27/24 06/28/24 06/28/24 18:59 06:59 18:59 Intake Total 600 40 615 Output Total 4850 3250 200 Balance -4250 -3210 415 Weight 135.9 kg Intake: IV 40 15 Invasive Line 1 20 5 Invasive Line 2 20 10 Oral 600 600 Output: Urine 4850 3250 200 Uretheral (Gustafson) 600 Other: Voiding Method Indwelling Catheter Indwelling Catheter - Labs CBC & Chem 7: 06/28/24 09:10 06/28/24 09:10 Labs: Microbiology - Last 24 Hours (Table) 06/25/24 14:18 Blood Culture - Preliminary Blood 06/25/24 22:45 Urine Culture - Final Urine,Voided
[2024-06-29 06:34] LABS: HCT 48.9 % (39.0-53.0); MCH 31.2 pg (25.0-35.0); MCHC 32.6 g/dL (31.0-37.0); MCV 95.5 fL (80.0-100.0); Mean Platelet Volume 8.7; Platelet Count 220 k/uL (150-450); RBC 5.12 m/uL (4.30-5.90); WBC 7.4 k/uL (3.8-10.6)
[2024-06-29 06:48] LABS: ALT 36 U/L (4-49); AST 39 U/L (17-59); African American GFR (CKD) >90 (>60 ml/min/1.73 sqM); Albumin 3.8 g/dL (3.5-5.0); Alkaline Phosphatase 65 U/L (38-126); Anion Gap 8 mmol/L; Blood Urea Nitrogen 16 mg/dL (9-20); Calcium 9.5 mg/dL (8.4-10.2); Carbon Dioxide 29 mmol/L (22-30); Chloride 100 mmol/L (98-107); Glucose 90 mg/dL (74-99); Magnesium 1.9 mg/dL (1.6-2.3); Non-African American GFR(CKD) >90 (>60 ml/min/1.73 sqM); Potassium 3.4 mmol/L (3.5-5.1); Sodium 137 mmol/L (137-145); Total Protein 6.6 g/dL (6.3-8.2)
[2024-06-29] MEDS: BUMETANIDE 1 MG TAB PO SCH (09:34)
[2024-06-29] MEDS: SACUBITRIL/VALSARTAN 24 MG-26 MG TABLET PO SCH (09:34)
[2024-06-29 11:26] VITALS: RESP 16; TEMP 98
--- NOTE | 2024-06-29 13:45 | P.PN ---
Subjective Progress Note Date: 06/29/24 Principal diagnosis: Cardiomyopathy. This is a 29-year-old male patient with a known history of ADHD, anxiety, vaping, marijuana use who moved here recently from [place] about 6 months ago. No current primary care provider. No home medications. He states he had been having some chest discomfort across his chest for about a week. He was using Tylenol for the pain. He woke up after midnight this morning with his heart racing and palpitations. He had gotten up to get a drink of water and collapsed. Unclear if he lost consciousness. His girlfriend called 911 and he was brought here by EMS. He was found to be in SVT and was cardioverted by carbon cutter. He was fairly asymptomatic when he arrived at the emergency room. He did state he had called in sick earlier this week due to sore throat cough and congestion. His mom had recently been admitted for bilateral pneumonia and she had developed a DVT. CT angiogram performed this morning ruled out central or large pulmonary embolus however suboptimal contrast bolus timing could not exclude PE in the pulmonary arterial branches. No evidence of aortic aneurysm or dissection. There was interlobular septal thickening and groundglass opacities concerning for fluid overload and pulmonary edema. There is moderate right and small left pleural effusions. EKG revealed sinus tachycardia with some ST and T wave abnormalities laterally. The patient was taken to the cardiac lab and was found to have normal coronary arteries. Shortly after being admitted to the selective care unit the patient developed acute hypoxemia, diaphoresis tachycardia requiring BiPAP placement 12/5 and 100% FiO2. He was transferred to the intensive care unit for closer monitoring. He is seen there today in consultation. He is currently awake and alert. He remains on BiPAP. He denies any further chest discomfort. Dopplers of the lower extremity were positive for a DVT on the right and he was initiated back on a heparin drip. Echocardiogram is pending. Viral screen was negative. He received Lasix 40 mg IVP x 1 with 2 L of urine output. White count 12.1. Hemoglobin 14.8. Platelets 270. Sodium 138. Potassium 4.0. Bicarb 21. BUN 15. Creatinine 1.17. Troponin 0.182, 0.941. Urine drug screen positive for marijuana. Seen today on 06/26/2024, patient remains in the ICU, on 6 L nasal cannula with O2 saturation of 100%. Chest x-ray showing improvement in his pulmonary edema remains on Lasix at 40 mg IV push every 8 hours. Patient is on heparin, nitroglycerin drip, and his echocardiogram showed significant severe c ardiomyopathy with LV dysfunction ejection fraction of 15% patient also has moderate mitral regurgitation. Considering the overall picture, I believe the patient clearly has severe nonischemic cardiomyopathy since his cardiac catheterization did not show any evidence of any coronary artery disease, and his cardiomyopathy issues are now being addressed by cardiology on the case. Patient was placed on Eliquis 2 discontinue heparin since he had DVT in the lower extremities, CT angiogram failed to show any significant pulmonary embolism however the patient will need to be treated with anticoagulation therapy either way. Patient was also placed on fark [employer], and he feels better today compared to how he felt yesterday. WBC count is 8.7 hemoglobin 13.1 PTT is 62.6 basic metabolic profile is normal except for low potassium being addressed as per protocol chest x-ray continues to show cardiomegaly and mild interstitial edema improved compared to the admission x-ray yesterday Seen today on 06/27/2024, patient remains in the ICU, he is on 3 L nasal cannula, not in distress, feeling better overall compared to how he felt when he came in. Remains on Lasix and Aldactone he is also on Eliquis now. Cardiology is recommending a LifeVest considering his severe cardiomyopathy and LV dysfuncti on. WBC count is 6.6 hemoglobin 14.5 electrolytes are normal except for low potassium of 3.3. Renal functioning is normal Progress note dated June 28, 2024. 29-year-old male seen today in room 355. He is currently on room air. No IV fluids. The patient is hoping to be discharged later today. The patient denies any shortness of breath, cough, wheezing, chest tightness, phlegm production, chest pain, pressure, or palpitations. Current labs include a white count 13, hemoglobin 16.4, hematocrit 50.9, and a normal platelet count. Sodium 138, potassium 3.8, chlorides 94, CO2 34, BUN 15, creatinine 1.15. Glucose is 85. Albumin is 4.5. Progress note dated June 29, 2024. This is a 29-year-old male seen today in room 355. The patient is not receiving any supplemental oxygen, or IV fluids. The patient is being fitted for a LifeVest. He is hoping to be discharged afterwards. He denies all chest complaints including shortness of breath, cough, wheezing, chest tightness, phlegm production, chest pain or pressure, palpitations, or fluttering. White count 7.4, hemoglobin 16, hematocrit 48.9, platelet count is normal. Sodium 137, potassium 3.4, chlorides 100, CO2 29, BUN 16, creatinine 0.9. Objective - Vital Signs Vital signs: Vital Signs Temp 98.0 F 06/29/24 09:30 Pulse 81 06/29/24 09:30 Resp 16 06/29/24 09:30 BP 111/75 06/29/24 09:30 Pulse Ox 98 06/29/24 09:30 FiO2 60 06/26/24 05:00 Intake & Output 06/28/24 06/29/24 06/29/24 18:59 06:59 18:59 Intake Total 1935 120 118 Output Total 700 Balance 1235 120 118 Weight 136.9 kg Intake: IV 15 Invasive Line 1 5 Invasive Line 2 10 Oral 1920 120 118 Output: Urine 700 Other: Voiding Method Indwelling Catheter Toilet Toilet - Exam No acute distress, oriented 3. HEENT examination is grossly unremarkable. Mucous membranes are moist. No oral lesions. Neck supple. Full range of motion. No adenopathy thyromegaly or neck vein distention. Cardiovascular examination reveals regular rhythm rate. S1-S2 normal. No S3 or S4. A soft systolic murmur is noted. Lungs reveal clear breath sounds. Her sounds are equal bilaterally. No adventitious lung sounds including wheezes rhonchi or crackles. Abdomen soft bowel sounds are heard. No masses or tenderness. Extremities are intact. No cyanosis clubbing or edema. Skin is without rash or lesion. Neurologic examination is brief but nonfocal. - Labs CBC & Chem 7: 06/29/24 06:10 06/29/24 06:10 Labs: Abnormal Lab Results - Last 24 Hours (Table) 06/29/24 Range/Units 06:10 Potassium 3.4 L (3.5-5.1) mmol/L Total Bilirubin 2.0 H (0.2-1.3) mg/dL Microbiology - Last 24 Hours (Table) 06/25/24 14:18 Blood Culture - Preliminary Blood Assessment and Plan Assessment: Severe nonischemic cardiomyopathy. Acute systolic CHF. Acute SVT, requiring cardioversion. Acute hypoxemic respiratory failure secondary to bilateral pleural effusions, and systolic CHF. Acute right lower extremity DVT. No evidence of pulmonary embolism on CT angiogram. Transient ST segment elevation. Normal coronary arteries on cardiac catheterization. History of vaping, marijuana use. History of ADHD. Family history of DVT. History of anxiety. Plan: Plan dated June 28, 2024. Clinically, the patient's doing well. The patient is currently on room air. The patient is pacing the room, and hoping that he will be discharged later today. He is on room air. No IV fluids. I believe he is waiting for a LifeVest. Will continue to follow the patient, make recommendations along the way. Prognosis is certainly guarded. Labs, x-rays, and all medications have been reviewed. Plan dated June 29, 2024. The patient is seen today in room 355. The patient is being fitted for a LifeVest. The patient is hoping to be discharged home sometime later today. Labs, x-rays, and medications are reviewed. The patient denies all chest complaints including shortness of breath, cough, wheezing, chest tightness, phlegm production, chest pain, chest pressure, and palpitations. We will continue to follow the patient, should he not be discharged home. Time with Patient: Less than 30
[2024-06-29 14:02] VITALS: BP 112/72; PULSE 74
--- NOTE | 2024-06-29 14:22 | P.DS ---
Providers Date of admission: 06/25/24 05:34 Expected date of discharge: 06/29/24 Attending physician: Frank Humphrey MD Consults: 06/25/24 13:51 Consult Physician Routine Consulting Provider: Becky Dumont Consult Reason/Comments: ICU management Do you want consulting provider notified?: Already Contacted Primary care physician: Stated None Hospital Course: Discharge Diagnosis: Nonischemic cardiomyopathy with EF of 15 to 20%, suspect myocarditis. Patient discharged home on Bumex 1 mg daily, Eliquis VTE starter pack, metoprolol 25 mg twice daily, Aldactone 25 mg daily, Entresto 24-26 mg tablet twice daily, Farxiga 10 mg daily. LifeVest was placed prior to discharge. Acute systolic heart failure NSTEMI, cardiac cath negative revealing normal coronary arteries, suspect myocarditis. SVT status post cardioversion Acute hypoxic respiratory failure secondary to HFrEF, improved Acute right lower extremity popliteal DVT. Continue Eliquis VTE dosing Hypokalemia, resolved. Acute kidney injury, Resolved. History of vaping and marijuana use. Recommend cessation of use. ADHD. Recommend avoiding stimulants such as Adderall. Anxiety. Recommend avoiding stimulants such as Adderall. Hospital course: Patient is a 29-year-old male with a past medical history of ADHD, anxiety, vaping, and marijuana use. He presented to the emergency department on 06/25/2024 after reports of palpitations and chest pain followed by collapse and suspected syncopal episode. Chest pain and palpitations had reportedly been ongoing for approximately a week just after reports of recent upper respiratory infection consisting of sore throat, cough, and congestion. Reports of taking Tylenol and Sudafed for treatment. EMS was called to scene and per documentation in chart patient was found to be in SVT and was cardioverted. Upon arrival to our facility, patient underwent evaluation in the emergency department. Vital signs upon arrival show blood pressure 114/84, heart rate 101, respiratory rate 16, temp 98.1 F, and SpO2 of 96% on 2 L. EKG was completed showing sinus tachycardia at 112 bpm with T wave inversion in lateral leads I, II, aVL , V4-V6. Chest x-ray completed showing enlargement of cardiac silhouette, prominent lung markings with hazy opacities suggestive of pulmonary vascular congestion and edema with small bilateral pleural effusions. Labs were completed and reviewed. CBC revealed leukocytosis with WBC count of 17.3 coagulation profile showing elevated PT of 13.0 and INR of 1.2.. BMP showing hypokalemia with potassium of 3.4 and non-anion gap metabolic acidosis with chloride of 112, bicarb of 19, and anion gap of 7 with elevated creatinine of 1.35. Blood glucose was 118. Liver profile showing hyperbilirubinemia with total bili of 1.9 and elevated AST of 62. Initial troponin was 0.182. CRP elevated at 1.3. TSH 1.960 and procalcitonin negative at 0.09. Urine drug screen was positive for marijuana. Influenza A, influenza B, RSV, and COVID PCR were negative. CTA chest was completed for pulmonary emboli showing prominence of the bronchial pavon secondary to fluid overload, moderate right and left pleural effusions, and nonspecific prominent mediastinal and hilar lymph nodes with shotty axillary lymph nodes or nonspecific fat stranding. Patient was admitted under our services with consultation to cardiology. Repeat troponin resulting at 0.941. Urine drug screen positive only for marijuana. Patient was taken for cardiac catheterization revealing angiographically normal coronary arteries with severe LV dysfunction, nonischemic cardiomyopathy with estimated EF of 15 to 20%, and severely elevated left ventricular end-diastolic pressure. Ultrasound of right lower extremity showing a nonocclusive DVT involving the mid right popliteal vein. Echocardiogram completed showing an EF of 15 to 20% with a severely dilated left ventricular cavity, right ventricular dilation with reduced systolic function, severe left atrial dilation, and moderate mitral regurgitation. Patient developed hypoxia, tachycardia, and diaphoresis re quiring continuous BiPAP and was transferred to the ICU for close monitoring. On 06/27/2024 patient was transferred to stepdown unit. PEP 6.7, free kappa quant was 2.86 and free lambda quant also just slightly elevated at 2.81. Patient's condition improving and he is currently free from any complaints or concerns at this time including chest pain or shortness of breath. He was cleared from cardiology perspective and from pulmonary perspective. LifeVest was delivered to room, placed on patient and patient educated on use. Follow-up appointment was made with residency clinic. Patient to also follow-up with cardiology in 1 week. Patient medically stable for discharge at this time. Physical exam: Vital signs reviewed and stable. General: Nontoxic, no distress and appears stated age. Derm: Skin warm and dry, normal coloration for ethnicity. Head: Atraumatic, normocephalic and symmetric. Eyes: EOM's intact, no lid lag, and anicteric sclera Mouth: no lip lesions, mucus membranes moist Cardiovascular: regular rate and rhythm with normal S1S2, no murmur, positive posterior tibial pulses bilaterally, and cap refill < 2 seconds. Lungs: Respirations even, regular, and unlabored on room air. Lungs CTA bilaterally, no rhonchi, no rales, no wheezing, and no accessory muscle usage. Abdominal: soft, nontender to palpation, no guarding, no appreciable organomegaly Ext: ROM intact. No gross muscle atrophy, BLE edema, no contractures Neuro: Speech clear, face symmetrical and CN II-XII grossly intact with no noted focal neuro deficits Psych: Alert and oriented to person, place, time, and situation. Appropriate and pleasant affect. A total of 41 minutes of time were spent preparing this complex discharge summary. Pt was discharged on 06/29/2024 at 2:19 PM. Patient was seen independently by Nurse Practitioner. This document was prepared using [employer] dictation software. Please allow for errors in hose builder while rare they do occur. I reviewed the documentation as provided by the TREY above, who is the original author of this note. I agree with the documented assessment and plan, with the following changes: none Patient Condition at Discharge: Stable Plan - Discharge Summary Discharge Rx Participant: No New Discharge Prescriptions: New Bumetanide [BUMEX] 1 mg PO DAILY 30 Days #30 tab Apixaban [Eliquis Starter Pack (for VTE)] 5 - 10 mg PO DIRECTED 30 Days #1 each Metoprolol Tartrate [Lopressor] 25 mg PO BID 30 Days #60 tab Spironolactone [Aldactone] 25 mg PO DAILY 30 Days #30 tab Sacubitril/Valsartan [Entresto 24 mg-26 mg Tablet] 1 each PO BID 30 Days #60 tab Dapagliflozin Propanediol [Farxiga] 10 mg PO DAILY 30 Days #30 tab Discharge Medication List Apixaban [Eliquis Starter Pack (for VTE)] 5 - 10 mg PO DIRECTED 30 Days #1 each 06/28/24 [Rx] Bumetanide [BUMEX] 1 mg PO DAILY 30 Days #30 tab 06/28/24 [Rx] Dapagliflozin Propanediol [Farxiga] 10 mg PO DAILY 30 Days #30 tab 06/28/24 [Rx] Metoprolol Tartrate [Lopressor] 25 mg PO BID 30 Days #60 tab 06/28/24 [Rx] Sacubitril/Valsartan [Entresto 24 mg-26 mg Tablet] 1 each PO BID 30 Days #60 tab 06/28/24 [Rx] Spironolactone [Aldactone] 25 mg PO DAILY 30 Days #30 tab 06/28/24 [Rx] Follow up Appointment(s)/Referral(s): Sanjay Winter DO [STAFF PHYSICIAN] - 07/08/24 9:00 am Stephy Rubio MD [RESIDENT] - 07/02/24 11:00 am Patient Instructions/Handouts: Dilated Cardiomyopathy (DC), Deep Vein Thrombosis (DC), Safe Use of Anticoagulants (DC) Activity/Diet/Wound Care/Special Instructions: Activity: As tolerated. Take breaks as needed. Diet: Heart healthy and carb consistent diet. Avoid salts, or foods with hidden salts such as canned or boxed foods and frozen dinners. Extra salt makes your heart work harder and traps the fluid in your body for longer. Special Instructions: Take all of your medications as directed and remember to keep all of your doctor's appointments and follow-up as needed. You have been scheduled for posthospitalization follow-up at residency clinic with Dr. Rubio on 07/02/24 at 11 AM. It is about most importance to keep this appointment as you will require ongoing care. It is also important to follow- up with cardiology office in 1 week. Thank you for allowing us to participate in your care, it was truly a pleasure having you for our patient!!! Discharge/Stand Alone Forms: Work/School Release Discharge Disposition: HOME SELF-CARE
[2024-06-30 08:40] LABS: Albumin 3.69 g/dL (3.80-4.90)
[2024-06-30 08:41] LABS: Gamma Globulin 0.89 g/dL (0.70-1.50)
== END 2024-06-29 16:32 | disposition home or self-care (01) | DRG 286 ==
LOC: EC 03:02 → 3SCARD 05:34 → 2SICU 13:21 → 3SCARD 06-27 14:20
PROVIDERS: ADMIT Internal Medicine; ATTEND Internal Medicine
PROC: 4A023N7 Measurement of Cardiac Sampling and Pressure, Left Heart, Percutaneous Approach (ICD-10-PCS; 2024-06-25)
PROC: B2151ZZ Fluoroscopy of Left Heart using Low Osmolar Contrast (ICD-10-PCS; 2024-06-25)
PROC: B2111ZZ Fluoroscopy of Multiple Coronary Arteries using Low Osmolar Contrast (ICD-10-PCS; principal; 2024-06-25 09:00)
DX: I51.4 Myocarditis, unspecified (principal); I26.99 Other pulmonary embolism without acute cor pulmonale; J96.01 Acute respiratory failure with hypoxia; I50.21 Acute systolic (congestive) heart failure; I42.8 Other cardiomyopathies; E87.20 Acidosis, unspecified; Z68.41 Body mass index [BMI] 40.0-44.9, adult; N17.9 Acute kidney failure, unspecified; I82.431 Acute embolism and thrombosis of right popliteal vein; I47.10 Supraventricular tachycardia, unspecified; E87.6 Hypokalemia; I11.0 Hypertensive heart disease with heart failure; I34.0 Nonrheumatic mitral (valve) insufficiency; E66.01 Morbid (severe) obesity due to excess calories; F41.9 Anxiety disorder, unspecified; F90.9 Attention-deficit hyperactivity disorder, unspecified type; F17.290 Nicotine dependence, other tobacco product, uncomplicated; Z79.82 Long term (current) use of aspirin; Z79.01 Long term (current) use of anticoagulants; Z79.899 Other long term (current) drug therapy
CPT/HCPCS: 36415; 71045; 71046; 71275; 80048; 80053; 80306; 81001; 82550; 83036; 83735; 83883; 84145; 84165; 84443; 84484; 85025; 85027; 85610; 85652; 85730; 86140; 87040; 87086; 87636; 93005; 93306; 93458; 94640; 94660; 94760; 96361; 96365; 96366; 96375; 99291